=== PATIENT | male | born 1960 | race Caucasian/White ===

== ENCOUNTER → 2017-05-14 | Outpatient (CLI) | payer OTHER ==
[~2017-05-14] MED LIST: AMLO-110 PO; BUPR-79 PO; FENT25DI2 TOP; FLUO20CA35 PO; GLC/500 PO; HYDR-4079 PO; IPRA1AER2 INH; IPRASOL34 INH; LOSA100T65 PO; MONT1TAB3 PO; MULT-506 PO; PANT40TA PO; PREG100C PO; RANI300T PO; SIMV20TA2 PO
--- NOTE | 2017-05-14 15:39 | DIAGNOSTIC IMAGING REPORT ---
LUMBAR SPINE 5 VIEWS CLINICAL HISTORY: Chronic low back pain. FINDINGS: 5 views of the lumbar spine are compared to study dated 04/24/2008. The skeletal structures are osteopenic. There is no radiographic evidence of fracture or malalignment. Vertebral body height is maintained throughout the lumbar spine. There is straightening of the lumbar lordosis. Minimal retrolisthesis is seen at L1-L2. Alignment is otherwise preserved. There are postoperative changes from laminectomy and spinal fusion seen from L2 to L5. Interpedicular screws are present at all levels. The orthopedic hardware appears intact. Interpositioned bone graft material is noted. There has been discectomy at L3-L4, L4-L5, and L5-S1. Moderate disc space narrowing is seen at L1-L2. Mild narrowing is seen at L2-L3. The transverse processes are intact as visualized. Anterior osteophytes are seen throughout. Sclerotic change is noted in the sacroiliac joints. The imaged bony pelvis appears intact. Cholecystectomy clips are identified. There is no bowel obstruction. Moderate colonic fecal retention is observed. IMPRESSION: 1. No acute bony abnormality is seen involving the lumbar spine. 2. Osteopenia with spondylotic and postoperative changes as above. 3. Moderate constipation. Dictated: 05/14/2017 2:40 PM Transcribed: 05/14/2017 3:39 PM [email or web address] Electronically signed by: Alex San M.D. 05/14/2017 3:41 PM Dictated Date/Time: 05/14/2017 2:40 PM
== END | disposition home or self-care (01) ==
LOC: C.LAB1850 14:24
PROVIDERS: ATTEND Family Medicine
DX: M54.5 Low back pain (principal); M85.88 Other specified disorders of bone density and structure, other site; Z98.1 Arthrodesis status; K59.00 Constipation, unspecified; Z88.8 Allergy status to other drugs, medicaments and biological substances

== ENCOUNTER → 2017-10-26 | Outpatient (CLI) | payer OTHER ==
[~2017-10-26] MED LIST changes: -AMLO-110 PO; +AMLO5TAB3 PO
--- NOTE | 2017-10-26 11:05 | DIAGNOSTIC IMAGING REPORT ---
R HAND MIN 3 VIEWS ROUTINE, L HAND MIN 3 VIEWS ROUTINE HISTORY: 57 years-old Male PAIN IN BOTH HANDS M79.641 M79.642 acute bilateral hand pain without reported trauma COMPARISON: None available TECHNIQUE: 3 views of the bilateral hands FINDINGS: RIGHT: Mild cortical thickening about the lateral cortex mid fifth metacarpal may reflect remote healed fracture. Mild degenerative changes about the first carpal metacarpal joint. No acute fracture, dislocation, significant degenerative changes or opaque foreign body. LEFT: Mild degenerative changes about the first carpal metacarpal joint. No acute fracture, dislocation or opaque foreign body. IMPRESSION: No acute fracture. The above report was generated using voice recognition software. It may contain grammatical, syntax or spelling errors. Electronically signed by: Clive Caceres M.D. 10/26/2017 11:03 AM Dictated Date/Time: 10/26/2017 11:01 AM
== END | disposition home or self-care (01) ==
LOC: C.RAD1850 10:47
PROVIDERS: ATTEND Internal Medicine
DX: M15.0 Primary generalized (osteo)arthritis (principal); M79.641 Pain in right hand; M79.642 Pain in left hand

== ENCOUNTER 2018-10-30 06:06 | Observation (INO) ==
--- NOTE | 2018-10-14 09:17 | PAT Medication Instructions ---
Medication Instructions Date of Service October 14, 2018 Home Medications DUONEB 1 inh INHALATION QID PRN amlodipine 5 mg PO HS ascorbic acid (vitamin C) 2,000 mg PO QAM bupropion HCl Wellbutrin SR 150 mg PO QAM cholecalciferol (vitamin D3) 400 unit PO QAM fentanyl 1 patch TRANSDERMAL Q72H furosemide 80mg PO prn edema fluoxetine 40 mg PO QAM hydrocodone-acetaminophen 1 tab PO Q6H PRN ipratropium-albuterol [Combivent Respimat] 1 puff INHALATION QID PRN losartan 100 mg PO HS metformin 500 mg PO BIDM montelukast [Singulair] 10 mg PO QAM multivitamin 1 tab PO QAM naproxen sodium [Aleve] 440 mg PO BID PRN pantoprazole 40 mg PO QAM pregabalin 100 mg PO BID ranitidine HCl 300 mg PO BID simvastatin 20 mg PO PM zolpidem 10mg PO prn insomnia Continue as directed fentanyl 1 patch TRANSDERMAL Q72H *do not place near surgical site ASK your surgeon for instructions naproxen sodium [Aleve] 440 mg PO BID PRN DO NOT take the morning of surgery ascorbic acid (vitamin C) 2,000 mg PO QAM cholecalciferol (vitamin D3) 400 unit PO QAM furosemide 80mg PO prn edema metformin 500 mg PO BIDM montelukast [Singulair] 10 mg PO QAM multivitamin 1 tab PO QAM Take morning of surgery With a small sip of water, OTHERWISE NOTHING TO EAT OR DRINK AFTER MIDNIGHT: DUONEB 1 inh INHALATION QID PRN (if needed) bupropion HCl Wellbutrin SR 150 mg PO QAM fluoxetine 40 mg PO QAM hydrocodone-acetaminophen 1 tab PO Q6H PRN (if needed, may be taken up to four hours before surgery) ipratropium-albuterol [Combivent Respimat] 1 puff INHALATION QID PRN (if needed) pantoprazole 40 mg PO QAM pregabalin 100 mg PO BID ranitidine HCl 300 mg PO BID Take evening before surgery DUONEB 1 inh INHALATION QID PRN (if needed) amlodipine 5 mg PO HS furosemide 80mg PO prn edema hydrocodone-acetaminophen 1 tab PO Q6H PRN (if needed) ipratropium-albuterol [Combivent Respimat] 1 puff INHALATION QID PRN (if needed) losartan 100 mg PO HS metformin 500 mg PO BIDM pregabalin 100 mg PO BID ranitidine HCl 300 mg PO BID simvastatin 20 mg PO PM zolpidem 10mg PO prn HS insomnia (if needed) Other Notes If you have any questions please call us at [phone] or [phone] or [phone] or [phone]
--- NOTE | 2018-10-14 09:33 | Anesthesiology Consultation ---
Date of Service October 14, 2018 Assessment & Plan (1) Encounter for pre-operative examination: -- Glidescope used for 2013 ACDF for HNP but may be because of surgery/diagnosis rather than difficult intubation. -- MAC 3, ETT 7.5, grade view I, no issues noted for 2013 lumbar decompression/fusion. *possible difficult intubation, pt with very decreased cervical extension. CHECK BSG AM DOS Chart Review Chart Review: Acceptable Risk for Surgery and Patient seen in Pre Admission Testing Teaching & Discussion Instructed NPO after midnight before surgery, except medications with 15 cc of water. Medication instructions provided according to the PAT guidelines. History Surgery Operation Date: 10/30/18 07:45 Proposed Procedures p C4 Anterior Cervical Corpectomy - Mikel Gregory DO Height/Weight Height: 6 ft 2 in Weight: 109.5 kg Allergies Allergy/AdvReac Type Severity Reaction Status Date / Time Hydantoins Allergy Unknown RASH Verified 10/10/18 15:49 phenytoin Allergy Unknown RASH Verified 10/10/18 15:49 Medications Home Medications Medication Instructions Recorded Confirmed Last Taken DUONEB 1 inh INHALATION QID PRN #0 12/11/13 10/10/18 Unknown amlodipine 5 mg PO HS 10/10/18 10/10/18 Unknown ascorbic acid (vitamin C) [Vitamin 2,000 mg PO QAM 10/10/18 10/10/18 Unknown C] bupropion HCl [Wellbutrin SR] 150 mg PO QAM 10/10/18 10/10/18 Unknown cholecalciferol (vitamin D3) 400 unit PO QAM 10/10/18 10/10/18 Unknown [Vitamin D3] fentanyl 1 patch TRANSDERMAL Q72H 10/10/18 10/10/18 Unknown fluoxetine 40 mg PO QAM 10/10/18 10/10/18 Unknown hydrocodone-acetaminophen 1 tab PO Q6H PRN 10/10/18 10/10/18 Unknown ipratropium-albuterol [Combivent 1 puff INHALATION QID PRN 10/10/18 10/10/18 Unknown Respimat] losartan 100 mg PO HS 10/10/18 10/10/18 Unknown metformin 500 mg PO BIDM 10/10/18 10/10/18 Unknown montelukast [Singulair] 10 mg PO QAM 10/10/18 10/10/18 Unknown multivitamin 1 tab PO QAM 10/10/18 10/10/18 Unknown naproxen sodium [Aleve] 440 mg PO BID PRN 10/10/18 10/10/18 Unknown pantoprazole 40 mg PO QAM 10/10/18 10/10/18 Unknown pregabalin 100 mg PO BID 10/10/18 10/10/18 Unknown ranitidine HCl 300 mg PO BID 10/10/18 10/10/18 Unknown simvastatin 20 mg PO PM 10/10/18 10/10/18 Unknown furosemide 80 mg PO PRN 10/14/18 Unknown zolpidem 10 mg PO HS PRN 10/14/18 10/14/18 Unknown Past Medical History Medical History Anxiety BARDALES (dyspnea on exertion) Had stress testing via primary care 03/2018, WNL. Depression Diabetes mellitus, type 2 GERD (gastroesophageal reflux disease) History of difficult intubation POSSIBLY--2013 ACDF for HNP, Glidescope used, but may be because of surge ry/diagnosis rather than difficult intubation. MAC 3 ETT 7.5, grade view I for 2013 lumbar decompression/fusion. History of seizure ADOLESCENT - was weaned off of antiseizure meds around age 19, no issues since. Hx of concussion MAY 2018 - CAUSED NECK ISSUES Hx of sleep apnea HAD WEIGHT LOSS AND UPPV SURGERY - NO LONGER AN ISSUE Hyperlipidemia Hypertension Osteoarthritis Post traumatic stress disorder Seasonal asthma Uses inhalers mostly in springtime. Spinal stenosis in cervical region Spinal stenosis of lumbar region Exercise / Class Metabolic Activity III < 4 Walking/Shop/Light housework (Some BARDALES with stairs; denies any chest pain. No SOB with ambulation.) Past Family History Family History Father Family history of diabetes mellitus Past Surgical History Surgical History History of carpal tunnel release of both wrists History of hydrocelectomy History of knee replacement procedure of left knee History of knee replacement procedure of right knee History of lumbar surgery X4 History of meniscectomy of left knee History of meniscectomy of right knee History of repair of anterior cruciate ligament of left knee History of repair of anterior cruciate ligament of right knee History of uvulopalatopharyngoplasty Hx of cervical spine surgery X2 Hx of cholecystectomy Hx of decompression of ulnar nerve RIGHT Hx of lymph node excision RIGHT NECK Hx of nasal septoplasty Hx of tonsillectomy Past Anesthesia History No Hx of Anesthesia Complications and No Family Hx of Anesthesia Complications History of PONV No Hx of PONV and No Hx of Motion Sickness Social History Smoking Status: Former smoker Do You Dip or Chew Tobacco: No Smoking End Date: 27 YR AGO Hx Alcohol Use: Yes Alcohol type: hard liquor alcohol intake frequency: a few times a week Hx Substance Use: No Review of Systems Pt denies any recent chest pain, palpitations, cough, fever or URI. +some breathing discomfort felt 2/2 neck brace Physical Exam Vital Signs BP: 132/84 P: 81bpm SPO2: 96% RA T: 97.8 F R: 16 ENMT Mouth: + dental restorations (several caps); no chipped teeth and no loose teeth Thyromental Distance: > or= 3.5 Finger Breadths (3.5) Mallampati Class: I (uvula surgically absent) Neck + limited neck extension and + facial hair (short lai) wearing rigid cervical collar. Respiratory normal respiratory effort Auscultation: lungs clear to auscultation bilaterally Cardiovascular Rate/Rhythm: regular rate and regular rhythm Heart Sounds: no murmur Extremities: no edema Testing Laboratory Results 10/14/18 09:45 10/14/18 09:45 PT 10.7 Seconds (9.0-12.0) 10/14/18 09:45 INR 1.0 (0.9-1.1) 10/14/18 09:45 APTT 25.8 Seconds (21.0-31.0) 10/14/18 09:45 Urine Color Dark Yellow 10/14/18 09:45 Urine Appearance Clear (Clear) 10/14/18 09:45 Urine pH 5.5 (4.5-7.5) 10/14/18 09:45 Ur Specific [place] 1.020 (1.000-1.030) 10/14/18 09:45 Urine Protein Negative (Negative) 10/14/18 09:45 Urine Glucose (UA) Negative (Negative) 10/14/18 09:45 Urine Ketones Negative (Negative) 10/14/18 09:45 Urine Nitrite Negative (Negative) 10/14/18 09:45 Ur Leukocyte Esterase Negative (Negative) 10/14/18 09:45 Blood Type A Positive 10/14/18 09:45 Antibody Screen NEGATIVE 10/14/18 09:45 Electrocardiogram Date: 10/14/18 Findings: + NSR @ (66) Chest X-Ray Date: 10/14/18 Findings: + NAD Stress Test Date: 03/05/18 Resting EF: 60% Negative stress echocardiogram and EKG for ischemia at 85% MPHR. Above average exercise tolerance for age and gender, 131% of predicted, achieving 12.6 METs. Rest echo: Normal LV size and systolic function with no regional wall motion abnormality's at rest. No LVH.
--- NOTE | 2018-10-14 10:07 | XRay Report ---
XR chest Pre-admission PA/Lat CLINICAL HISTORY: Preoperative chest COMPARISON STUDY: 01/28/2015 FINDINGS: The cardiac and mediastinal contours are normal. There is no evidence of focal pulmonary co nsolidation. There is no evidence of failure. No pleural effusions are visualized.[ IMPRESSION: No active disease in the chest. Electronically signed by: Abdoulaye Bosch M.D. 10/14/2018 10:06 AM
[2018-10-14 11:05] LABS: Basophils # (auto) 0.03 K/uL (0-0.2); Basophils % (auto) 0.6 %; Eosinophils # (auto) 0.35 K/uL (0-0.5); Eosinophils % (auto) 7.4 %; Hemoglobin 13.8 g/dL (14.0-18.0); Immature Granulocytes # (auto) 0.01 K/uL (0.00-0.02); Immature Granulocytes % (auto) 0.2 %; Lymphocytes # (auto) 1.11 K/uL (1.2-3.4); Lymphocytes % (auto) 23.5 %; Mean Corpuscular Hgb Conc 33.7 g/dL (32-36); Mean Corpuscular Volume 88.6 fL (80-100); Mean Platelet Volume 11.2 fL (7.4-10.4); Monocytes # (auto) 0.74 K/uL (0.11-0.59); Monocytes % (auto) 15.7 %; Neutrophils # (auto) 2.48 K/uL (1.4-6.5); Neutrophils % (auto) 52.6 %; Platelet Count 239 K/uL (130-400); RDW Coefficient of Variation 13.7 % (11.5-14.5); RDW Standard Deviation 44.7 fL (36.4-46.3); Red Blood Count 4.63 M/uL (4.7-6.1); White Blood Count 4.72 K/uL (4.8-10.8)
[2018-10-14 11:07] LABS: Appearance Urine Clear (Clear); Bilirubin Urine Negative (Negative); Blood Urine Negative (Negative); Color Urine Dark Yellow; Glucose Urine UA Negative (Negative); Ketones Urine Negative (Negative); Leukocyte Esterase Urine Negative (Negative); Nitrite Urine Negative (Negative); Protein Urine Negative (Negative); Urobilinogen Urine Negative (Negative); pH Urine 5.5 (4.5-7.5)
[2018-10-14 11:17] LABS: Partial Thromboplastin Time 25.8 Seconds (21.0-31.0); Prothrombin Time 10.7 Seconds (9.0-12.0)
[2018-10-14 12:07] LABS: BUN Creatinine Ratio 15.9 (10-20); Creatinine Clr Calc Pharmacy 116.4 ml/min; Est GFR (African American) 106.6; Potassium 4.5 mmol/L (3.5-5.1)
[~2018-10-30 06:06] MED LIST changes: -AMLO5TAB3 PO; -BUPR-79 PO; +CEFAZOLIN 2000MG 2,000 MG/15 ML SYR IV SCH; -FENT25DI2 TOP; -FLUO20CA35 PO; -GLC/500 PO; -HYDR-4079 PO; -IPRA1AER2 INH; -IPRASOL34 INH; -LOSA100T65 PO; +LR 15ML/HR IV SCH; -MONT1TAB3 PO; -MULT-506 PO; -PANT40TA PO; -PREG100C PO; -RANI300T PO; -SIMV20TA2 PO
[2018-10-30] MEDS ORDERED: ATROPINE SULFATE 0.1 MG/ML 10ML SYR IV PRN (06:34)
[2018-10-30] MEDS ORDERED: ePHEDrine sulfate 50 MG/ML AMP IV PRN (06:34)
[2018-10-30] MEDS ORDERED: ONDANSETRON INJ 2 MG/ML 2 ML VIAL IV PRN ×2 (06:34→11:19)
[2018-10-30] MEDS ORDERED: MIDAZOLAM HCL 1 MG/ML 2ML VIAL ONE (06:38)
[2018-10-30] MEDS ORDERED: fentaNYL citrate 100 MCG/2 ML VIAL ONE ×4 (06:38→09:12)
[2018-10-30] MEDS ORDERED: HYDROmorphone INJ 2 MG/ML SYR/VIAL ONE (06:39)
[2018-10-30] MEDS ORDERED: DEXAMETHASONE SOD INJ 4 MG/ML VIAL ONE (06:42)
[2018-10-30] MEDS ORDERED: ONDANSETRON INJ 2 MG/ML 2 ML VIAL ONE (06:42)
[2018-10-30] MEDS ORDERED: GLYCOPYRROLATE 0.2 MG/ML VIAL ONE (06:42)
[2018-10-30] MEDS ORDERED: PROPOFOL IV EMULSION 10 MG/ML 20 ML VIAL IV ONE (06:42)
[2018-10-30] MEDS ORDERED: NEOSTIGMINE METHYLSULFATE 1 MG/ML 10ML VIAL ONE (06:42)
[2018-10-30] MEDS ORDERED: ROCURONIUM BROMIDE 10 MG/ML 5 ML VIAL ONE (06:42)
[2018-10-30] MEDS ORDERED: LIDOCAINE HCL 2% 2 ML VIAL/AMP(20MG/ML) INFIL ONE (06:42)
[2018-10-30] MEDS ORDERED: SUCCINYLCHOLINE CHLORIDE 20 MG/ML 10 ML VIAL ONE (06:42)
[2018-10-30] MEDS ORDERED: PROPOFOL IV EMULSION 10 MG/ML 100 ML VIAL IV ONE (07:03)
[2018-10-30] MEDS ORDERED: BACITRACIN INJ 50,000 UNIT VIAL ONE (07:13)
--- NOTE | 2018-10-30 07:24 | History & Physical Bridge Note ---
Date of Service October 30, 2018 History & Physical Bridge Note I have examined the patient, reviewed the History & Physical and in the interval since the performance of the History & Physical I have noted the following changes of clinical significance: no changes noted
--- NOTE | 2018-10-30 07:27 | History & Physical Report ---
Date of Service October 30, 2018 Assessment & Plan (1) Cervical stenosis of spinal canal: Anterior cervical corpectomy C4 Present on Admission?: Yes History of Present Illness Chief Complaint: Neck and arm pain Primary Care Provider: Ralph Dee MD This is a 58-year-old female well-known to me. He presents with neck and arm symptoms and neurologic decline. Subsequently we were moving forward with surgery Allergies Allergy/AdvReac Type Severity Reaction Status Date / Time Hydantoins Allergy Unknown RASH Verified 10/30/18 06:36 phenytoin Allergy Unknown RASH Verified 10/30/18 06:36 Home Medications Home Medications Medication Instructions Recorded Confirmed Type DUONEB 1 inh INHALATION QID PRN #0 12/11/13 10/30/18 History amlodipine 5 mg PO HS 10/10/18 10/30/18 History ascorbic acid (vitamin C) [Vitamin 2,000 mg PO QAM 10/10/18 10/30/18 History C] bupropion HCl [Wellbutrin SR] 150 mg PO QAM 10/10/18 10/30/18 History cholecalciferol (vitamin D3) 400 unit PO QAM 10/10/18 10/30/18 History [Vitamin D3] fentanyl 1 patch TRANSDERMAL Q72H 10/10/18 10/30/18 History fluoxetine 40 mg PO QAM 10/10/18 10/30/18 History hydrocodone-acetaminophen 1 tab PO Q6H PRN 10/10/18 10/30/18 History ipratropium-albuterol [Combivent 1 puff INHALATION QID PRN 10/10/18 10/30/18 History Respimat] losartan 100 mg PO HS 10/10/18 10/30/18 History metformin 500 mg PO BID 10/10/18 10/30/18 History montelukast [Singulair] 10 mg PO QAM 10/10/18 10/30/18 History multivitamin 1 tab PO QAM 10/10/18 10/30/18 History naproxen sodium [Aleve] 440 mg PO BID PRN 10/10/18 10/30/18 History pantoprazole 40 mg PO QAM 10/10/18 10/30/18 History pregabalin 100 mg PO BID 10/10/18 10/30/18 History ranitidine HCl 300 mg PO BID 10/10/18 10/30/18 History simvastatin 20 mg PO PM 10/10/18 10/30/18 History furosemide 80 mg PO DAILY PRN 10/14/18 10/30/18 History zolpidem 10 mg PO HS PRN 10/14/18 10/30/18 History Past Med/Surg History Medical History Anxiety BARDALES (dyspnea on exertion) Had stress testing via primary care 03/2018, WNL. Depression Diabetes mellitus, type 2 GERD (gastroesophageal reflux disease) History of difficult intubation POSSIBLY--2013 ACDF for HNP, Glidescope used, but may be because of surgery/diagnosis rather than difficult intubation. MAC 3 ETT 7.5, grade view I for 2013 lumbar decompression/fusion. History of seizure ADOLESCENT - was weaned off of antiseizure meds around age 19, no issues s [place]. Hx of concussion MAY 2018 - CAUSED NECK ISSUES Hx of sleep apnea HAD WEIGHT LOSS AND UPPV SURGERY - NO LONGER AN ISSUE Hyperlipidemia Hypertension Osteoarthritis Post traumatic stress disorder Seasonal asthma Uses inhalers mostly in springtime. Spinal stenosis in cervical region Spinal stenosis of lumbar region Surgical History History of carpal tunnel release of both wrists History of hydrocelectomy History of knee replacement procedure of left knee History of knee replacement procedure of right knee History of lumbar surgery X4 History of meniscectomy of left knee History of meniscectomy of right knee History of repair of anterior cruciate ligament of left knee History of repair of anterior cruciate ligament of right knee History of uvulopalatopharyngoplasty Hx of cervical spine surgery X2 Hx of cholecystectomy Hx of decompression of ulnar nerve RIGHT Hx of lymph node excision RIGHT NECK Hx of nasal septoplasty Hx of tonsillectomy Family History Father Family history of diabetes mellitus Social History Preferred Language: Citizen Of [place] Communication Ability: Effective Beliefs That Will Affect Care: None Current Living Situation: Spouse Feels Safe at Home: Yes Smoking Status: Former smoker Do You Dip or Chew Tobacco: No ; Smoking End Date: 27 YR AGO ; Second Hand Exposure: No ; Hx Alcohol Use: Yes Alcohol type: hard liquor Hx Substance Use: No Physical Exam Physical Exam: Patient is alert and oriented neurologically intact Results & Data Vital Signs (Past 12 Hours) Vital Signs Temp Pulse Resp BP Pulse Ox 10/30/18 06:30 36.6 C 70 18 136/88 93
[2018-10-30] MEDS ORDERED: ePHEDrine sulfate 50 MG/ML SYR ONE (09:11)
[2018-10-30] MEDS ORDERED: FLOSEAL HEMOSTATIC MATRIX 10ML TOP ONE (09:21)
--- NOTE | 2018-10-30 09:27 | Operative Report ---
Post Operative Report Pre & Post Diagnosis Operation Date: 10/30/18 07:45 Pre-Op Diagnosis: Cervical spinal stenosis with myeloradiculopathy Post-Op Diagnosis: Same Procedure Operation Date: 10/30/18 07:45 Actual Procedures #1 anterior cervical corpectomy with bilateral foraminotomies C4. #2 anterior cervical arthrodesis C3-C5. #3 placement of spiral titanium cage 25 mm in height from C3-C5. #4 placement of locally harvested morselized autograft and interbody cage. #5 application of kirby plate and screws from C3-C5. Surgeon Mikel Gregory, Feed Research Aide Omayra Wynne Estimated Blood Loss 75 Findings Consistent with Post-Op Diagnosis Specimens None Indications This is a 58-year-old male who presents with myeloradiculopathy. After noting progressive changes would like to undergo the above-mentioned procedure. Description of Procedure Patient was met with identified and informed consent obtained. He was then taken to the operative suite underwent intubation placed in supine position Kadeem table with head Rosario head of maintenance. All bony prominences well-padded eyes inspected to ensure no external pressure placed upon the peer at this point the anterior cervical spine was prepped and draped in normal sterile fashion with the assistance of fluoroscopy identified the C4 vertebral body and a transverse incision was placed on the right anterior aspect of the cervical spine overlying this region. Sharp dissection with the assistance of bipolar electrocautery was performed down to and exposing the anterior cervical spine from C3-C5. Self-retaining retractors placed. Then performed a complete discectomy of C3-4 out to the uncovertebral joints bilaterally followed by complete discectomy of C4-5. [place] distracting pins were then placed in C3 and C5 distract across the C4 vertebral body. A complete corpectomy was then performed including removal of all posterior annular fibers longitudinal ligament and the disc fragments. Bilateral foraminotomies were also performed at this time. Endplates were then burred to subcortical bleeding bone and a 25 mm titanium cage filled with locally harvested morselized autograft tapped in position. Distraction apparatus was removed and a kirby plate and screws applied with the assistance of fluoroscopy. The incision was then copiously irrigated explored to ensure no damage to surrounding structures remaining bleeding. 10 round AUGUSTUS drain inserted. The incision was then closed with 2 Vicryl in the fashion of 4 Monocryl for final skin closure. Steri-Strip sterile dressings placed. Patient will continue PACU stable condition. Please note Omayra Wynne present at the entire procedure involved in patient positioning complex portions of the surgery and final skin closure. Lastly spinal cord monitoring was utilized that procedure no changes noted. I attest to the content of the Intraoperative Record and any orders documented therein. Any exceptions are noted below.
--- NOTE | 2018-10-30 09:41 | Fluoroscopy Report ---
INTRAOPERATIVE RADIOGRAPHS CLINICAL HISTORY: Anterior spinal fusion. Fluoroscopy time: 9 seconds. FINDINGS: 2 spot fluoroscopic views of the cervical spine are correlated with radiographs dated 2018. There has been corpectomy of C4, with anterior fusion seen from C3-C5. The orthopedic hardware appears intact. A screw fragment is again seen within the body of C5. Changes of anterior fusion at C 6-C7 are similar to previous. An endotracheal tube is in place. IMPRESSION: Intraoperative images from cervical spinal fusion surgery as above. Electronically signed by: Alex San M.D. 10/30/2018 9:39 AM
[2018-10-30] MEDS ORDERED: ESMOLOL HCL INJ 10 MG/ML 10ML VIAL IV ONE (09:47)
[2018-10-30] MEDS: fentaNYL citrate 100 MCG/2 ML VIAL IV PRN ×2 (10:12→10:25)
--- NOTE | 2018-10-30 10:40 | Anesthesiology Progress Note ---
Date of Service October 30, 2018 Anesthesia Post Procedure Vital Signs Vital Signs: Temp Pulse Pulse Resp BP BP Pulse Ox 10/30/18 10:35 74 16 121/78 94 10/30/18 10:25 97.5 F L 77 16 119/74 95 10/30/18 10:15 75 16 119/70 96 10/30/18 10:05 75 14 118/66 95 10/30/18 09:55 75 14 112/68 96 10/30/18 09:45 78 16 119/73 92 10/30/18 09:36 97.7 F 84 16 125/78 100 10/30/18 06:30 97.9 F 70 18 136/88 93 Pain Intensity Posterior Medial Neck: Pain Intensity: 5 Upper Posterior Neck: Pain Intensity: 6 Transfer of Care Handoff Completed per policy Notes Mental Status: alert / awake / arousable and participated in evaluation Patient Amnestic to Procedure: Yes Nausea / Vomiting: adequately controlled Pain: adequately controlled Airway Patency, RR, SpO2: stable & adequate BP & HR: stable & adequate Hydration State: stable & adequate Anesthetic Complications: no major complications apparent and Pt Satisfied with anesthetic care
[2018-10-30] MEDS ORDERED: FUROSEMIDE 80 MG TAB PO PRN (11:19)
[2018-10-30] MEDS ORDERED: NAPROXEN 250 MG TAB PO PRN (11:19)
[2018-10-30] MEDS ORDERED: ACETAMINOPHEN 1,000 MG/100 ML VIAL IV PRN (11:19)
[2018-10-30] MEDS ORDERED: DO NOT ADMINISTER FLU VACCINE PRN (11:19)
[2018-10-30] MEDS ORDERED: LORazepam 0.5 MG/1 ML VIAL IV PRN (11:19)
[2018-10-30] MEDS ORDERED: DiphenhydrAMINE HCL 50 MG/ML VIAL IV PRN (11:19)
[2018-10-30] MEDS ORDERED: DO NOT ADMINISTER PNEUMOCOCCAL VACCINE PRN (11:19)
[2018-10-30] MEDS ORDERED: DEXAMETHASONE SOD PHOSPHATE 8 MG in SYRINGE 0 ML IV PRN (11:19)
[2018-10-30] MEDS ORDERED: ZOLPIDEM TARTRATE 10 MG TAB PO PRN (11:19)
[2018-10-30] MEDS ORDERED: HYDROmorphone INJ 0.5 MG/0.5 ML SYR IV PRN (11:19)
[2018-10-30] MEDS ORDERED: RACEPINEPHRINE 2.25% NEBU SOLN 0.5 ML VIAL INH PRN (11:19)
[2018-10-30] MEDS ORDERED: LORazepam 0.5 MG TAB PO PRN (11:19)
[2018-10-30] MEDS ORDERED: IPRATROPIUM BROMIDE/ALBUTEROL respimat INH INH PRN (11:19)
[2018-10-30] MEDS ORDERED: MAGNESIUM HYDROXIDE SUSP 30 ML UDC PO PRN (11:19)
[2018-10-30] MEDS ORDERED: NALOXONE HCL 0.4 MG/1 ML VIAL/CARP IV PRN (11:19)
[2018-10-30] MEDS ORDERED: PHARMACY GLYCEMIC MGMT CONSULT PRN (11:45)
[2018-10-30] MEDS ORDERED: ALBUT/IPRATROP 3MG/0.5MG NEB 3 ML VIAL INH PRN (13:00)
[2018-10-30] MEDS: INSULIN ASPART 100 UNITS/ML 3 ML PEN SC SCH ×3 (13:00→21:13)
[2018-10-30] MEDS: HYDROCODONE/ACETAMOPHEN 5/325MG TAB PO PRN ×2 (13:04→17:55)
[2018-10-30] MEDS ORDERED: LANTUS PER UNIT CHARGE SQ ONE (13:30)
[2018-10-30] MEDS ORDERED: SCOPOLAMINE 1.5 MG TDSY TD SCH (13:30)
--- NOTE | 2018-10-30 13:30 | Pharmacy Report ---
Glycemic Control Consultation - Date of Service October 30, 2018 - Scope Scope: Glycemic Pharmacist consulted by Dr Gregory on 10/30/18 for glycemic control and to write orders per [facility] inpatient glycemic control protocol - Objective Weight: 108.8 kg Accuchecks BSG (last 24hrs): 10/30/18 10/30/18 06:29 09:40 POC Glucose 114 H 128 H - Recent Pertinent Medications Outpatient Anti-diabetic Regimen: * metformin 500 mg po BID * A1c = ~4.5-5 % August 2018 --> per patient Risk Factors for Insulin Resistance: * Steroids: dexamethasone 12 mg IV x 1 intraop * Recent Surgery: POD 0 for back surgery * Diet: T2DM - Assessment & Plan Assessment & Plan: ASSESSMENT: * Mr Fajardo is a 58 y/o M with a PMH of well controlled T2DM on oral agents (per his report, HbA1C ordered for tomorrow). Patient's fasting blood sugar today was 114 mg/dL. Patient okay with receiving insulin while inhouse. Will resume metformin KAT. * For Lantus, the patient received dexamethasone 12 mg IV x 1. While his blood sugar is very well controlled at home, it is reasonable to expect blood sugars to increase quickly with this dose of steroids. Will utilize a half weight- based stress of 3 --- typically use half of weight-based stress of 2 for dexamethasone 8 mg. * For Novolog, will use in-between weight-based stress of 2 and 3 ... patient's BMI is overweight so therefore it is reasonable to look at adjusted body weight. This is just slightly tighter than adjusted body weight stress of 3. One check at 0200. * ADA & AACE recommend a goal blood sugar range 140-180 mg/dl for the majority of critically ill & non-critically ill patients. However, more stringent targets may be selected in individual cases. Will utilize more stringent goal of 110-140mg/dl based on patient age & comorbidities. Additionally, tighter glycemic control is warranted to facilitate wound healing. * Pt is maintained on oral antidiabetic agents as an outpatient * Oral agents are not recommended for inpatient use d/t drug interactions, changing PO intake, and difficulty titrating for acute hyper/hypoglycemia. ADA recommends re-initiating outpatient oral agents 1-2 days prior to discharge if/when appropriate if they were held on admission. * Will hold oral agents for admission and utilize SQ basal bolus insulin regimen which is the recommended regimen for inpatient glycemic control. * Will initiate weight based insulin dosing for insulin osmel patient and titrate based on BSG trends. PLAN FOR INPATIENT GLYCEMIC CONTROL: * Holding outpatient oral diabetes medications * Basal insulin * Lantus 30 units SQ x1 * Bolus insulin * NovoLog per scale ACHS or Q6hrs while NPO * Goal Range: Low 110 mg/dL - High 140 mg/dL * Correction Factor: 18 mg/dL/unit * Nutritional / Prandial insulin per carb ratio of 1 unit per 6 grams CHO consumed * Please note that the plan above was derived based on current level of insulin resistance and hospital stress. These recommendations are appropriate for inpatient admission only. Plan of care upon discharge will need to be reassessed to avoid potential outpatient hypo/hyperglycemia. Thank you.
[2018-10-30] MEDS: SODIUM CHLORIDE 0.9% 1000ML 1,000 ML IV SCH (14:08)
[2018-10-30] MEDS: CHECK SCOPOLAMINE PATCH PLACEMENT SCH (15:10)
[2018-10-30] MEDS: CHECK FENTANYL PATCH PLACEMENT SCH (15:11)
[2018-10-30] MEDS: CEFAZOLIN 2000MG 2,000 MG/15 ML SYR IV SCH (15:13)
[2018-10-30] MEDS: DOCUSATE SODIUM 100 MG CAP PO SCH (21:11)
[2018-10-30] MEDS: PREGABALIN 100 MG CAP PO SCH (21:11)
[2018-10-30] MEDS: AMLODIPINE BESYLATE 5 MG TAB PO SCH (21:11)
[2018-10-30] MEDS: SIMVASTATIN 20 MG TAB PO SCH (21:11)
[2018-10-30] MEDS: LOSARTAN POTASSIUM 50 MG TAB PO SCH (21:11)
[2018-10-31] MEDS: SODIUM CHLORIDE 0.9% 1000ML 1,000 ML IV SCH ×2 (00:32→14:22)
[2018-10-31] MEDS: CEFAZOLIN 2000MG 2,000 MG/15 ML SYR IV SCH ×2 (00:32→09:24)
[2018-10-31] MEDS: HYDROCODONE/ACETAMOPHEN 5/325MG TAB PO PRN ×4 (00:32→20:58)
[2018-10-31] MEDS: CHECK FENTANYL PATCH PLACEMENT SCH ×4 (00:36→23:56)
[2018-10-31] MEDS: CHECK SCOPOLAMINE PATCH PLACEMENT SCH ×4 (00:36→23:56)
[2018-10-31] MEDS ORDERED: INSULIN ASPART 100 UNITS/ML 3 ML PEN SC SCH (02:00)
[2018-10-31 07:02] LABS: Estimated Average Glucose 128 mg/dl; Hemoglobin A1C 6.1 % (4.5-5.6)
--- NOTE | 2018-10-31 08:14 | Discharge Summary ---
Date of Service October 31, 2018 Admission HPI Per Admitting Provider This is a 58-year-old female well-known to me. He presents with neck and arm symptoms and neurologic decline. Subsequently we were moving forward with surgery Principal Diagnosis Cervical spinal stenosis with myeloradiculopathy Discharge Data Allergies Allergy/AdvReac Type Severity Reaction Status Date / Time Hydantoins Allergy Unknown RASH Verified 10/30/18 06:36 phenytoin Allergy Unknown RASH Verified 10/30/18 06:36 Procedures Performed Operation Date: 10/30/18 07:45 Actual Procedures p C4 Anterior Cervical Corpectomy, with Spinal Cord Monitoring(Not Applicable) - Mikel Gregory DO Ordered Studies 10/30/18 07:45 FL cervical 2-3V Routine FL fluoroscopy <1hr Routine Hospital Course (1) Cervical stenosis of spinal canal: Patient underwent anterior cervical corpectomy of C4 tolerated as well as taken to orthopedic for possibly postop day #1 he was swallowing well no hoarseness. He had improvement of symptoms of his upper extremities. AUGUSTUS drain decreasing appropriately. Subsequently discharged home. Discharge orders instructions from the chart for further review. Total Time Total Time Spent Total Time Spent (In Minutes): 20 minutes Discharge Plan Discharge Items Patient Disposition: Home - Self-Care Reason For Visit: Other Spondylosis with Myelopathy, Cervical Discharge Diagnosis: Cervical spinal stenosis with myeloradiculopathy Discharge Goals: Improve function Activity: Per 'Additional Instructions' section Non-emergency contact: Primary Care Provider Call non-emergency contact if: you have any medication questions Follow-up/Referrals: Ralph Dee MD [Primary Care Provider] - Diet: Regular Addtl Provider Instructions: ACTIVITY RECOMMENDATIONS: SELF CARE INSTRUCTIONS AFTER CERVICAL FUSIONS 1. No smoking. Smoking drastically decreases the chance of a solid fusion. 2. No bending, lifting more than 5 pounds, or twisting (roll like a log when turning in bed). 3. You may shower 3 days after surgery. Thoroughly dry wound. Do not soak in the tub. 4. Cervical collar: Must be worn at all times including sleeping. You may remove the brace only to bath, eat and if you are sitting in a recliner. 5. Please walk as much as you can for exercise. Gradually increase the distance that you walk as your endurance increases. SPECIAL CARE INSTRUCTIONS: VERY IMPORTANT TO READ AND REVIEW A. Do not take any anti-inflammatory medications (i.e. Indocin, Advil, Aspirin, Naprosyn, Aleve, Motrin, etc.) as these may inhibit the chance of a solid fusion. Tylenol is okay to take. B. Your surgical incision has been closed with a cosmetic suture under the skin that will dissolve in about 6 weeks. In 14 days, you can use a pair of clean scissors and cut the suture that is left outside of the skin at the ends of your incision. C. Complications are uncommon, but please contact us if you have any signs or symptoms of: 1. wound infection (fever higher than 102.5 degrees F, redness, separation of wound, drainage, or increasing pain from the incision) 2. blood clots in legs (pain, swelling, redness and warmth in legs) 3. urinary tract infection (fever higher than 102.5 degrees, burning upon urination or increased frequency of urination) 4. nerve problems (inability to walk on your toes or heels, numbness, loss of bowel or bladder control) 5. any other symptoms that concern you. D. Please call the office at if you have any concerns or questions about your operation or recovery. MANAGING PAIN AFTER SPINAL SURGERY 1. Narcotic medication is intended for short-term use and will be provided for surgical pain. Surgical pain usually lasts for a period of 4-6 weeks. Narcotic medication includes Percocet, Vicodin, Darvocet, Tylenol #3 or Lortab. 2. Longer-term pain is more appropriately treated with non-narcotic medication such as Tylenol ES. 3. Muscle spasm is not appropriately treated with narcotics. Muscle relaxers such as Soma, Flexeril or Skelaxin can be used along with Tylenol ES. 4. Remember that we all live with some "aches and pains". This is not unusual or uncommon after an injury or as we get older. 5. We will provide appropriate medication within the normal guidelines of their prescribed use. We will also be very cautious and aware of potential abuse and extended duration of patients' medication needs. 6. Please allow 2-3 days to process refills. Prescriptions will not be mailed but must be picked up at the office. FOLLOW UP VISIT: Keep your scheduled follow-up appointment. Any questions, please call the office at . Prescriptions: New hydrocodone-acetaminophen [[place]] 5-325 mg Tablet 1 - 2 tab PO Q4H PRN (Reason: Pain) Qty: 30 RF: 0 Continued DUONEB SOLTAB 1 inh Inhalation QID PRN (Reason: PRN) Qty: 0 RF: 0 ascorbic acid (vitamin C) [Vitamin C] 500 mg Tablet,Chewable 2,000 mg PO QAM RF: 0 cholecalciferol (vitamin D3) [Vitamin D3] 400 unit Tablet,Chewable 400 unit PO QAM RF: 0 naproxen sodium [Aleve] 220 mg Capsule 440 mg PO BID PRN (Reason: Pain) RF: 0 bupropion HCl [Wellbutrin SR] 150 mg Tablet Sustained-Release 12 Hr 150 mg PO QAM RF: 0 amlodipine 5 mg Tablet 5 mg PO HS RF: 0 fluoxetine 40 mg Capsule 40 mg PO QAM RF: 0 fentanyl 25 mcg/hr Patch 72 Hour 1 patch TRANSDERMAL Q72H RF: 0 multivitamin Tablet 1 tab PO QAM RF: 0 metformin 500 mg Tablet 500 mg PO BID RF: 0 hydrocodone-acetaminophen 10-325 mg Tablet 1 tab PO Q6H PRN (Reason: Pain) RF: 0 montelukast [Singulair] 10 mg Tablet 10 mg PO QAM RF: 0 losartan 100 mg Tablet 100 mg PO HS RF: 0 Combivent Respimat 20-100 mcg/actuation Mist 1 puff inhalation QID PRN (Reason: Wheezing) RF: 0 pantoprazole 40 mg Tablet,Delayed Release (Dr/Ec) 40 mg PO QAM RF: 0 simvastatin 20 mg Tablet 20 mg PO PM RF: 0 ranitidine HCl 300 mg Capsule 300 mg PO BID RF: 0 pregabalin 100 mg Capsule 100 mg PO BID RF: 0 furosemide 80 mg Tablet 80 mg PO DAILY PRN (Reason: Edema) RF: 0 zolpidem 10 mg Tablet 10 mg PO HS PRN (Reason: Insomnia) RF: 0 Stand-Alone Forms: [facility] Discharge Orders: Discharge Order (Routine); Ordered 10/31/18 Ordered By: Mikel Gregory Admission Data Admit Date/Time: 10/30/18 09:33 Attending Provider: Mikel Gregory Admit Provider: Mikel Gregory Primary Care Provider: Ralph Dee Service: Surgical Services
[2018-10-31] MEDS: DOCUSATE SODIUM 100 MG CAP PO SCH ×2 (09:13→21:07)
[2018-10-31] MEDS: BuPROPion SR 150 MG TABCR PO SCH (09:13)
[2018-10-31] MEDS: PANTOprazole 40 MG TAB PO SCH (09:13)
[2018-10-31] MEDS: FLUOXETINE HCL 20 MG CAP PO SCH (09:14)
[2018-10-31] MEDS: MONTELUKAST SODIUM 10 MG TABLET PO SCH (09:14)
[2018-10-31] MEDS: INSULIN ASPART 100 UNITS/ML 3 ML PEN SC SCH ×4 (09:17→21:43)
[2018-10-31] MEDS: PREGABALIN 100 MG CAP PO SCH ×2 (09:22→20:59)
--- NOTE | 2018-10-31 09:28 | Anesthesiology Progress Note ---
Date of Service October 31, 2018 Anesthesia Post Procedure Vital Signs Vital Signs: Temp Pulse Pulse Resp BP BP Pulse Ox 10/31/18 07:57 36.5 C 66 18 128/88 94 10/31/18 07:53 56 L 16 94 10/31/18 06:57 36.4 C L 55 L 18 119/76 95 10/31/18 06:15 36.8 C 64 18 122/75 96 10/31/18 04:19 36.8 C 67 18 121/76 97 10/31/18 04:07 78 18 95 10/31/18 02:19 36.7 C 69 18 119/71 96 10/31/18 00:20 36.8 C 73 18 118/68 95 10/30/18 22:55 70 16 95 10/30/18 22:36 36.7 C 79 14 120/69 94 10/30/18 19:58 36.4 C L 80 16 128/68 95 10/30/18 19:50 79 16 98 10/30/18 18:05 36.7 C 79 16 125/82 96 10/30/18 15:59 36.5 C 81 16 115/79 96 10/30/18 15:57 87 16 92 10/30/18 14:04 36.5 C 78 14 117/72 94 10/30/18 13:06 36.8 C 82 14 124/81 96 10/30/18 12:02 36.4 C L 75 16 121/75 96 10/30/18 11:56 71 14 97 10/30/18 11:26 36.4 C L 74 14 118/71 95 10/30/18 11:00 36.8 C 79 14 109/68 96 10/30/18 10:45 36.4 C L 74 14 115/71 95 10/30/18 10:35 74 16 121/78 94 10/30/18 10:25 36.4 C L 77 16 119/74 95 10/30/18 10:15 75 16 119/70 96 10/30/18 10:05 75 14 118/66 95 10/30/18 09:55 75 14 112/68 96 10/30/18 09:45 78 16 119/73 92 10/30/18 09:36 36.5 C 84 16 125/78 100 Pain Intensity Posterior Medial Neck: Pain Intensity: 5 Upper Posterior Neck: Pain Intensity: 6 Notes Mental Status: alert / awake / arousable and participated in evaluation Patient Amnestic to Procedure: Yes Nausea / Vomiting: adequately controlled Pain: adequately controlled Airway Patency, RR, SpO2: stable & adequate BP & HR: stable & adequate Hydration State: stable & adequate Anesthetic Complications: no major complications apparent and Pt Satisfied with anesthetic care
--- NOTE | 2018-10-31 12:03 | Magnetic Resonance Report ---
MR brain wo con HISTORY: 58 years-old Male Left facial droop after cerv sx acute strokelike symptoms with left-sided facial droop COMPARISON: Brain MRI 06/16/2014 TECHNIQUE: Multiplanar multisequence MRI of the brain was obtained without the use of IV contrast. FINDINGS: Electrical Calibrator localizer images demonstrate no gross extracranial abnormality. There is no restricted diffusio n to suggest acute or subacute infarction. Minimal prominence about the posterior corpus callosum is unchanged from comparison study. There is no acute intracranial hemorrhage, midline shift, abnormal e xtra axial collection, hydrocephalus or intracranial mass identified. Minimal scattered T2/FLAIR hype rintensities about the subcortical and periventricular white matter is unchanged and likely reflects chronic microvascular ischemic disease. Mastoid air cells are generally clear. Flow voids at the level the skull base appear patent. Mild muc osal thickening about the paranasal sinuses and nasal turbinates. Orbits, and skull appear unremarkab le. Study is mildly motion degraded. Ovoid 1.5 cm T1 intermediate and T2 hypointense lesion about the left parietal scalp previously measured 10 mm and is likely benign. IMPRESSION: Motion degraded exam without acute intracranial abnormality. The above report was generated using voice recognition software. It may contain grammatical, syntax o r spelling errors. Electronically signed by: Clive Caceres M.D. 10/31/2018 12:02 PM
[2018-10-31] MEDS ORDERED: GADOBUTROL 65ML VIAL IV PRN (12:48)
--- NOTE | 2018-10-31 13:14 | Magnetic Resonance Report ---
MRI OF THE CERVICAL SPINE WITH AND WITHOUT CONTRAST CLINICAL HISTORY: Postoperative left hand numbness. COMPARISON: Cervical spine CT April 24, 2018. Fluoroscopic images of the cervical spine October 30. TECHNIQUE: Utilizing a 1.5 Angie magnet and dedicated coil, multiplanar, multiecho imaging of the ce rvical spine was performed before and after intravenous administration of 10.5 cc of Gadavist. FINDINGS: Patient is status post recent C4 corpectomy and C3-C5 fusion. A previous fusion through C7 is noted. Cervical cord signal and caliber are normal. There is no intracanalicular mass or fluid collection. P revertebral edema is noted. This is expected in the early postoperative setting. There is no intracan alicular mass or fluid collection. C2-C3: The central canal and neural foramen are patent. C3-C4: Mild posterior disc osteophyte complex effaces the ventral thecal sac. There is minimal centr al canal narrowing. Moderate to severe left and moderate right neural foraminal stenosis. C4-C5: The central canal is patent. There is severe right and moderate to severe left neural foramin al stenosis. C5-C6: The central canal is patent. The neural foramen also patent. C6-C7: The central canal and right neural foramen are patent. There is mild narrowing of the left ne ural foramen. C7-T1: The central canal and right neural foramen are patent. There is moderate narrowing of the lef t neural foramen. IMPRESSION: 1. Status post recent C4 corpectomy and C3-C5 fusion with previous fusion through C7. Prevertebral ed yamile which is expected in the early postoperative setting. No intracanalicular fluid collection. Nicolle l cervical cord signal and caliber. 2. Mild posterior disc osteophyte complex at C3-C4 which effaces the ventral thecal sac. No severe ce ntral canal stenosis. 3. Moderate to severe multilevel neural foraminal stenosis, as detailed above. Electronically signed by: Joel Fisher M.D. 10/31/2018 1:13 PM
--- NOTE | 2018-10-31 13:37 | Pharmacy Report ---
Glycemic Control Progress Note - Date of Service October 31, 2018 - Scope Glycemic Pharmacist consulted for glycemic control to write orders per [facility] inpatient glycemic control protocol. - Objective Accuchecks BSG(last 24 hours):: 10/30/18 10/30/18 10/31/18 18:01 20:30 02:05 POC Glucose 167 H 91 103 H 10/31/18 10/31/18 08:03 13:04 POC Glucose 93 79 HbA1c:: Hemoglobin A1c 6.1 % (4.5-5.6) H 10/31/18 05:32 - Recent Pertinent Medications The patient is currently receiving: * Basal insulin: Lantus 30 units SQ x 1 * Correctional Insulin: Novolog Correction per scale ACHS Goal Range: Low 110 mg/dL - High 140 mg/dL Correction Factor: 18 mg/dL/unit * Prandial insulin: Per carb ratio of 1 unit per 6 grams CHO consumed - Outpatient Anti-Diabetic Meds metformin 500 mg PO BID - Assessment & Plan ASSESSMENT: * See progress note from 10/30/18 for more background info, in short: * Pt receiving SQ basal bolus insulin regimen for hyperglycemia secondary to baseline DM (outpatient regimen on hold), POD 1, and received dexamethasone 12 mg intraoperatively * Patient is currently receiving an average of 47 units of insulin per day * 30 units of basal insulin * 17 units of prandial/correctional insulin * BSGs ranging 91 - 128 mg/dl over the past 24hrs (blood sugar at dinner of 167 mg/dL was AFTER the patient ate so is not accurate and therefore not counted) * Changes needed to insulin regimen: * AM Fasting BSG = 93 mg/dl. This is in goal range for patient based on inpatient targets and co-morbidities. Will not continue basal insulin * Post-prandial BSGs trended downwards - loosen significantly and start metformin in 48 hours since received contrast. Expect some carryover from Lantus dose * Total daily dose TBD PLAN FOR INPATIENT GLYCEMIC CONTROL: * No additional Lantus * LOOSENING correction factor to 45 mg/dl/unit * LOOSENING carb ratio to 1 unit per 15 grams CHO consumed * Continuing goal range of Low 110 mg/dL - High 140 mg/dL RECOMMENDATIONS FOR DISCHARGE: * Patient okay to restart metformin 48 hours after IV contrast. HbA1C indicates excellent control * Please note that the plan above was derived based on current level of insulin resistance and hospital stress. These recommendations are appropriate for inpatient admission only. Plan of care upon discharge will need to be reassessed to avoid potential outpatient hypo/hyperglycemia. Thank you.
--- NOTE | 2018-10-31 15:54 | Hospitalist Consultation ---
Date of Consultation October 31, 2018 Assessment & Plan (1) Facial droop: Acute onset left-sided lower facial droop first noted on 10/31. Patient, staff, and family all report that this was not present the prior evening. The patient underwent a MR brain and MR cervical spine with and without contrast. The MRI brain did not show any acute stroke. The MR cervical spine showed expected postoperative changes without any spinal cord compromise. Discussed the case with both Dr. Gregory and Dr. Oliver. 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 The patient has no other signs or symptoms of an ongoing central process. Normally one could treat a Pizano's palsy with steroids; however, given his recent surgery I would avoid this to promote healing and avoid infection in the surgical site. Often these will spontaneously resolve. The left handed numbness is likely a separate process related to expected swelling at the surgical area. One can hope that this will improve as the surgical site inflammation reduces, and the patient can follow-up with Dr. Gregory as normally scheduled. I did discuss with the patient, and he will follow with Dr. Gregory's advice regarding discharge. Given medical stability, Hospital Medicine team will sign off. Please re-consult with any questions or concerns. Thank you for letting us assist in the care of this patient! History of Present Illness Attending Physician: Mikel Gregory, DO History of Present Illness 58-year-old male with a history of hypertension and neck pain who presents as an urgent medical consult for concern for stroke after an ACDF with Dr. Gregory on 10/30. Patient underwent an uneventful ACDF with corpectomy and had an uneventful night. In the morning when his arrived, she and the RN noted that he had a left-sided facial droop. The patient also mentioned some additional numbness in the left hand. Left hand numbness had been ongoing prior to surgery, and was partially the cause of surgery. The RN notified to Dr. Gregory who had concern for stroke. Medical consult was established at that time. The patient denies any other symptoms whatsoever including dysphasia, dysarthria, weakness of the upper or lower extremities, or numbness in any other place. Allergies Allergy/AdvReac Type Severity Reaction Status Date / Time Hydantoins Allergy Unknown RASH Verified 10/30/18 06:36 phenytoin Allergy Unknown RASH Verified 10/30/18 06:36 Home Medications Home Medications Medication Instructions Recorded Confirmed Type DUONEB 1 inh INHALATION QID PRN #0 12/11/13 10/30/18 History amlodipine 5 mg PO HS 10/10/18 10/30/18 History ascorbic acid (vitamin C) [Vitamin 2,000 mg PO QAM 10/10/18 10/30/18 History C] bupropion HCl [Wellbutrin SR] 150 mg PO QAM 10/10/18 10/30/18 History cholecalciferol (vitamin D3) 400 unit PO QAM 10/10/18 10/30/18 History [Vitamin D3] fentanyl 1 patch TRANSDERMAL Q72H 10/10/18 10/30/18 History fluoxetine 40 mg PO QAM 10/10/18 10/30/18 History hydrocodone-acetaminophen 1 tab PO Q6H PRN 10/10/18 10/30/18 History ipratropium-albuterol [Combivent 1 puff INHALATION QID PRN 10/10/18 10/30/18 History Respimat] losartan 100 mg PO HS 10/10/18 10/30/18 History metformin 500 mg PO BID 10/10/18 10/30/18 History montelukast [Singulair] 10 mg PO QAM 10/10/18 10/30/18 History multivitamin 1 tab PO QAM 10/10/18 10/30/18 History naproxen sodium [Aleve] 440 mg PO BID PRN 10/10/18 10/30/18 History pantoprazole 40 mg PO QAM 10/10/18 10/30/18 History pregabalin 100 mg PO BID 10/10/18 10/30/18 History ranitidine HCl 300 mg PO BID 10/10/18 10/30/18 History simvastatin 20 mg PO PM 10/10/18 10/30/18 History furosemide 80 mg PO DAILY PRN 10/14/18 10/30/18 History zolpidem 10 mg PO HS PRN 10/14/18 10/30/18 History hydrocodone-acetaminophen [[place]] 1 - 2 tab PO Q4H PRN #30 tab 10/30/18 Rx Patient History Medical History Anxiety Depression Diabetes mellitus, type 2 GERD (gastroesophageal reflux disease) History of seizure ADOLESCENT - was weaned off of antiseizure meds around age 19, no issues since. Hx of concussion MAY 2018 - CAUSED NECK ISSUES Hx of sleep apnea HAD WEIGHT LOSS AND UPPV SURGERY - NO LONGER AN ISSUE Hyperlipidemia Hypertension Osteoarthritis Post traumatic stress disorder Seasonal asthma Uses inhalers mostly in springtime. Spinal stenosis in cervical region Spinal stenosis of lumbar region BARDALES (dyspnea on exertion) Had stress testing via primary care 03/2018, WNL. Surgical History History of carpal tunnel release of both wrists History of hydrocelectomy History of knee replacement procedure of left knee History of knee replacement procedure of right knee History of lumbar surgery X4 History of meniscectomy of left knee History of meniscectomy of right knee History of repair of anterior cruciate ligament of left knee History of repair of anterior cruciate ligament of right knee History of uvulopalatopharyngoplasty Hx of cervical spine surgery X2 Hx of cholecystectomy Hx of decompression of ulnar nerve RIGHT Hx of lymph node excision RIGHT NECK Hx of nasal septoplasty Hx of tonsillectomy History of difficult intubation POSSIBLY--2013 ACDF for HNP, Glidescope used, but may be because of surgery/diagnosis rather than difficult intubation. MAC 3 ETT 7.5, grade view I for 2013 lumbar decompression/fusion. Family History Father Family history of diabetes mellitus Social History Preferred Language: Maori Communication Ability: Effective Beliefs That Will Affect Care: None Current Living Situation: Spouse Feels Safe at Home: Yes Smoking Status: Former smoker Do You Dip or Chew Tobacco: No ; Smoking End Date: 27 YR AGO ; Second Hand Exposure: No ; Hx Alcohol Use: Yes Alcohol type: hard liquor Hx Substance Use: No Review of Systems Constitutional: no fever, no chills and no sweats Eyes: no diplopia Ear, Nose, Mouth, Throat: no ear trauma, no nasal discharge and no dental pain Respiratory: no cough, no chest congestion and no dyspnea Cardiovascular: no chest pain, no dyspnea on exertion, no palpitations and no syncope Gastrointestinal: no abdominal pain, no belching, no constipation, no diarrhea/loose stools, no blood in stools and no melena Musculoskeletal: no back pain, no joint pain and no muscle weakness Integumentary: no rash, no skin ulcer and no erythema Neurologic: + numbness (Left hand); no gait abnormality, no unsteadiness, no localized weakness, no generalized weakness, no paralysis, no loss of sensation, no paresthesia, no lack of coordination, no radiating pain, no tremor(s), no abnormal movements, no restless legs, no syncope, no headache(s), no abnormal speech and no memory loss Psychiatric: no depression and no anxiety Endocrine: no fatigue, no polydipsia and no polyphagia Physical Exam Constitutional: WD/WN, vitals as above Eyes: EOM intact bilaterally; no conjunctival abnormality ENMT: external ear and nose normal, oropharynx normal Neck: trachea midline, no thyromegaly normal visual inspection Respiratory: normal respiratory effort, lungs clear to auscultation no respiratory distress Cardiovascular: RRR, no murmur, no edema Gastrointestinal (Abdomen): Inspection/Auscultation: abdomen normal to inspection; abdomen not distended Musculoskeletal: no cyanosis or clubbing, extremities motor strength 5/5 Skin: no rashes, warm and dry Neurologic: moves all extremities and awake; no focal motor deficits and not confused Speech / Cognition: normal speech and no receptive aphasia Motor/Sensory: + sensory deficit (Light touch numbness in the fingertips); no tremor, normal movement and no pronator drift Cranial Nerves: PERRL, EOM intact bilaterally and tongue midline; + abnormal facial strength (Left lower lip droop; no upper facial involvement.) Coordination: normal [id number] test and normal [id number] test Psychiatric: Orientation: alert, oriented to person and cooperative Results & Data Vital Signs (Past 12 Hours) Vital Signs Temp Pulse Resp BP Pulse Ox 10/31/18 15:42 57 L 97 10/31/18 15:05 36.7 C 52 L 14 119/79 94 10/31/18 13:36 36.4 C L 62 14 141/87 H 97 10/31/18 09:57 36.5 C 52 L 14 135/87 94 10/31/18 07:57 36.5 C 66 18 128/88 94 10/31/18 07:53 56 L 16 94 08/08/19 06:57 36.4 C L 55 L 18 119/76 95 10/31/18 06:15 36.8 C 64 18 122/75 96 10/31/18 04:19 36.8 C 67 18 121/76 97 10/31/18 04:07 78 18 95 PG Care Time/CCT Total # of Minutes Spent Total Time Spent with Patient: Total time spent is greater than 50% in coordination of care (as documented) at patient's floor/unit and/or counseling patient:
[2018-10-31] MEDS ORDERED: LANTUS PER UNIT CHARGE SQ ONE (16:00)
[2018-10-31] MEDS: DEXAMETHASONE SOD PHOSPHATE 8 MG in SYRINGE 0 ML IV SCH ×2 (17:11→23:56)
[2018-10-31] MEDS ORDERED: GLUCOSE 40% GEL 15 GM TUBE PO PRN (21:00)
[2018-10-31] MEDS ORDERED: CARBOHYDRATES FOR HYPOGLYCEMIA PO PRN (21:00)
[2018-10-31] MEDS ORDERED: GLUCOSE 10 TABS/TUBE PO PRN (21:00)
[2018-10-31] MEDS ORDERED: DEXTROSE 50% 50 ML SYRINGE IV PRN (21:00)
[2018-10-31] MEDS ORDERED: GLUCAGON FOR INJ 1 MG VIAL IM PRN (21:00)
[2018-10-31] MEDS: LOSARTAN POTASSIUM 50 MG TAB PO SCH (21:06)
[2018-10-31] MEDS: AMLODIPINE BESYLATE 5 MG TAB PO SCH (21:06)
[2018-10-31] MEDS: SIMVASTATIN 20 MG TAB PO SCH (21:07)
[2018-11-01] MEDS ORDERED: INSULIN ASPART 100 UNITS/ML 3 ML PEN SC SCH (02:00)
[2018-11-01] MEDS: DEXAMETHASONE SOD PHOSPHATE 8 MG in SYRINGE 0 ML IV SCH ×2 (05:29→12:14)
[2018-11-01] MEDS: HYDROCODONE/ACETAMOPHEN 5/325MG TAB PO PRN ×2 (05:35→12:13)
[2018-11-01] MEDS ORDERED: BISACODYL 5 MG TABEC PO PRN (07:00)
[2018-11-01] MEDS: CHECK FENTANYL PATCH PLACEMENT SCH (08:00)
[2018-11-01] MEDS ORDERED: fentaNYL 25 MCG/HR TDSY TD SCH (09:00)
[2018-11-01] MEDS: INSULIN ASPART 100 UNITS/ML 3 ML PEN SC SCH ×2 (09:14→12:20)
[2018-11-01] MEDS: MONTELUKAST SODIUM 10 MG TABLET PO SCH (09:15)
[2018-11-01] MEDS: PREGABALIN 100 MG CAP PO SCH (09:15)
[2018-11-01] MEDS: CHECK SCOPOLAMINE PATCH PLACEMENT SCH (09:15)
[2018-11-01] MEDS: DOCUSATE SODIUM 100 MG CAP PO SCH (09:15)
[2018-11-01] MEDS: PANTOprazole 40 MG TAB PO SCH (09:16)
[2018-11-01] MEDS: BuPROPion SR 150 MG TABCR PO SCH (09:16)
[2018-11-01] MEDS: FLUOXETINE HCL 20 MG CAP PO SCH (09:16)
--- NOTE | 2018-11-01 09:17 | Orthopedic Progress Note ---
Date of Service November 01, 2018 Assessment & Plan (1) Cervical stenosis of spinal canal: This time we will allow him to discharge home. Discharge orders instructions from the chart for further review. Present on Admission?: Yes Subjective Patient feels his Pizano's palsy has improved today. He is still on a soft diet. No hoarseness. Some modest arm symptoms on the left but improved from his preop erative status. Physical Exam Physical Exam: On exam is good strength testing is standing ambulating with a steady gait. Does have some droop to the left side of his mouth but no other facial muscles appear to be involved at this time. Results & Data Vital Signs (Past 12 Hours) Vital Signs Temp Pulse Resp BP BP Pulse Ox 11/01/18 07:50 36.5 C 75 16 143/87 H 92 11/01/18 07:39 88 14 92 11/01/18 03:25 67 16 94 10/31/18 23:20 76 16 95 10/31/18 23:08 36.7 C 65 14 128/78 91
[2018-11-01] MEDS ORDERED: POLYETHYLENE (MIRALAX) 17 GM PACK PO PRN (09:31)
[2018-11-01 12:56] VITALS: BP 156/92; PULSE 76; TEMP 98.4; O2SAT 96
--- NOTE | 2018-11-01 13:41 | Hospitalist Progress Note ---
Date of Service November 01, 2018 Assessment & Plan (1) Facial droop: Acute onset left-sided lower facial droop first noted on 10/31. Patient, staff, and family all report that this was not present the prior evening. The patient underwent a MR brain and MR cervical spine with and without contrast. The MRI brain did not show any acute stroke. The MR cervical spine showed expected postoperative changes without any spinal cord compromise. 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 At this point the palsy is improving. I do not have a good explanation for why this occurred. However, given it is already improving, he can follow up with his PCP in 1-2 weeks. If it has not resolved, neurology consult can be undertaken at that time. Subjective Some improvement today in the facial droop. Otherwise hand symptoms are stable to mildly improved. Review of Systems Review of Systems: All systems reviewed & are unremarkable except as noted in HPI & below Physical Exam Constitutional: WD/WN, vitals as above Eyes: EOM intact bilaterally; no conjunctival abnormality ENMT: external ear and nose normal, oropharynx normal Neck: trachea midline, no thyromegaly normal visual inspection Respiratory: normal respiratory effort, lungs clear to auscultation no respiratory distress Cardiovascular: RRR, no murmur, no edema Gastrointestinal (Abdomen): Inspection/Auscultation: abdomen normal to inspection; abdomen not distended Musculoskeletal: no cyanosis or clubbing, extremities motor strength 5/5 Skin: no rashes, warm and dry Neurologic: moves all extremities and awake; no focal motor deficits and not confused Speech / Cognition: normal speech and no receptive aphasia Motor/Sensory: + sensory deficit (Light touch numbness in the fingertips); no tremor, normal movement and no pronator drift Cranial Nerves: PERRL, EOM intact bilaterally and tongue midline; + abnormal facial strength (Left lower lip droop; no upper facial involvement.) Coordination: normal [id number]-[id number] test and normal [id number] test Psychiatric: Orientation: alert, oriented to person and cooperative Results & Data Vital Signs (Past 12 Hours) Vital Signs Temp Pulse Resp BP BP Pulse Ox 11/01/18 12:54 36.9 C 76 16 156/92 H 96 11/01/18 07:50 36.5 C 75 16 143/87 H 92 11/01/18 07:39 88 14 92 11/01/18 03:25 67 16 94 PG Care Time/CCT Total # of Minutes Spent Total Time Spent with Patient: Total time spent is greater than 50% in coordination of care (as documented) at patient's floor/unit and/or counseling patient:
== END 2018-11-01 13:17 | disposition home or self-care (01) ==
LOC: 3E 06:06 → ASU 06:06

== ENCOUNTER 2019-07-18 08:22 | Inpatient (IN) ==
--- NOTE | 2019-07-18 08:59 | Emergency Department Note ---
History of Present Illness General Chief complaint: Swelling/Edema to Extremity Stated complaint: REDNESS/SWELLING IN LEGS,PENDING COVID RESULTS Time Seen by Provider: 07/18/19 08:39 History of Present Illness Maximum Pain Intensity: 7 This is a 59-year-old male that presents to the emergency department via private vehicle with complaints "redness/swelling in legs, pending COVID-19 results". The patient notes that this Sunday evening he developed fever, headache as well as some redness to the left leg. He states that the symptoms have progressed in the leg however the headache has been slightly improving but the redness and swelling to the left leg has worsened. He states he has not heard back from the COVID-19 test results yet. His testing took place Sunday at 2:30 PM. He notes a T-max of 104 F. He notes he is feeling more energetic than he was a few days ago. He denies any cough or shortness of breath. He denies any history of PE or DVT. He rates the overall discomfort in the left leg is a 7/10. No nuchal rigidity or photophobia. Pain in the leg is worse with weightbearing. Mildly better with rest. Home Medications Home Medications Medication Instructions Recorded Confirmed Type amlodipine 5 mg PO HS 10/10/18 07/18/19 History bupropion HCl [Wellbutrin SR] 150 mg PO QAM 10/10/18 07/18/19 History cholecalciferol (vitamin D3) 0 unit PO QAM 10/10/18 07/18/19 History [Vitamin D3] fentanyl 1 patch TRANSDERMAL Q72H 10/10/18 07/18/19 History fluoxetine 40 mg PO QAM 10/10/18 07/18/19 History hydrocodone-acetaminophen 1 tab PO Q6H PRN 10/10/18 07/18/19 History losartan 100 mg PO HS 10/10/18 07/18/19 History montelukast [Singulair] 10 mg PO QAM 10/10/18 07/18/19 History multivitamin 1 tab PO QAM 10/10/18 07/18/19 History pantoprazole 40 mg PO QAM 10/10/18 07/18/19 History pregabalin [Lyrica] 100 mg PO BID 10/10/18 07/18/19 History simvastatin 20 mg PO PM 10/10/18 07/18/19 History metformin 500 mg tablet 1,000 mg PO BID tab 01/20/19 07/18/19 History cyanocobalamin (vitamin B-12) 0 mcg PO QAM 07/06/19 07/18/19 History [Vitamin B-12] lidocaine [Lidoderm] 1 patch TOP DAILY PRN 07/18/19 07/18/19 History Allergies Allergy/AdvReac Type Severity Reaction Status Date / Time Hydantoins Allergy Mild RASH Verified 07/18/19 09:45 phenytoin Allergy Mild RASH Verified 07/18/19 09:45 Past Med/Surg History Medical History Anxiety Depression Diabetes mellitus, type 2 BARDALES (dyspnea on exertion) Had stress testing via primary care 03/2018, WNL. GERD (gastroesophageal reflux disease) History of seizure ADOLESCENT - was weaned off of antiseizure meds around age 19, no issues since. Hx of concussion MAY 2018 - CAUSED NECK ISSUES Hx of sleep apnea HAD WEIGHT LOSS AND UPPV SURGERY - NO LONGER AN ISSUE Hyperlipidemia Hypertension Osteoarthritis Post traumatic stress disorder Seasonal asthma Uses inhalers mostly in springtime. Spinal stenosis in cervical region Spinal stenosis of lumbar region Surgical History History of carpal tunnel release of both wrists History of difficult intubation POSSIBLY--2013 ACDF for HNP, Glidescope used, but may be because of surgery /diagnosis rather than difficult intubation. MAC 3 ETT 7.5, grade view I for 2013 lumbar decompression/fusion. History of esophagogastroduodenoscopy (EGD) History of hydrocelectomy History of knee replacement procedure of left knee History of knee replacement procedure of right knee History of lumbar surgery X4 History of meniscectomy of left knee History of meniscectomy of right knee History of repair of anterior cruciate ligament of left knee History of repair of anterior cruciate ligament of right knee History of uvulopalatopharyngoplasty Hx of cervical spine surgery X3---last 10/2018 Hx of cholecystectomy Hx of decompression of ulnar nerve RIGHT Hx of lymph node excision RIGHT NECK Hx of nasal septoplasty Hx of tonsillectomy Family History Father Family history of diabetes mellitus Sinusitis Hypertension Heart disease Mother Sinusitis Hypertension Heart disease Stroke Other No family history of bleeding disorder Social History Preferred Language: Liberian Communication Ability: Effective Community Relations Rep Required: No Beliefs That Will Affect Care: None Current Living Situation: Spouse and Family Current Living Situation Comment: Lives with , mother in law, brother in law current occupational status: employed current occupation: [employer] Feels Safe at Home: Yes Smoking Status: Former smoker Tobacco Type: cigarettes ; Age Started Using Tobacco: 11 ; Age Quit Using Tobacco: 30 ; packs per day: 2 ; Second Hand Exposure: Yes (childhood/son smoked) ; Hx Alcohol Use: Yes Alcohol type: hard liquor Alcohol Intake Frequency Comment: 3-4 drinks/month Hx Substance Use: No Review of Systems A total of 10 systems reviewed and were otherwise negative Physical Exam Vital Signs Vital Signs - 24 hr 07/18/19 08:30 07/18/19 09:38 07/18/19 09:39 Temperature 37.6 C H Temperature Source Oral Pulse Rate 100 H 65 Pulse Rate [Right Finger] 65 Pulse Rhythm Regular Pulse Rhythm [Right Finger] Regular Pulse Strength [Right Finger] Normal Respiratory Rate 24 20 20 Respiratory Effort / Characteristics Non-Labored Spontaneous Non-Labored Spontaneous Respiratory Depth Normal Normal Respiratory Pattern Regular Regular Blood Pressure 109/87 Blood Pressure [Right Arm] 121/86 Blood Pressure Mean 94 Blood Pressure Mean [Right Arm] 97 Blood Pressure Position [Right Arm] Sitting Pulse Oximetry 95 96 96 Oxygen Delivery Method Room Air Room Air Room Air Sepsis Recent Fever Within 48 Hours No Sepsis Action Taken by Nursing No Action Required 07/18/19 11:11 Temperature 37.4 C Temperature Source Oral Pulse Rate Pulse Rate [Right Finger] 66 Pulse Rhythm Pulse Rhythm [Right Finger] Regular Pulse Strength [Right Finger] Normal Respiratory Rate 18 Respiratory Effort / Characteristics Non-Labored Spontaneous Respiratory Depth Normal Respiratory Pattern Regular Blood Pressure Blood Pressure [Right Arm] 126/80 Blood Pressure Mean Blood Pressure Mean [Right Arm] 95 Blood Pressure Position [Right Arm] Sitting Pulse Oximetry 97 Oxygen Delivery Method Room Air Sepsis Recent Fever Within 48 Hours Sepsis Action Taken by Nursing VITAL SIGNS - Vital signs and nursing notes were reviewed. Borderline febrile, otherwise stable. GENERAL -59-year-old male appearing his stated age who is in no acute distress. Communicates well with provider and answers questions appropriately. SKIN -there is a large amount of edema and erythema to the patient's left lower extremity distal to the left knee. It is circumferentially edematous. The erythema is mostly involving the anterior aspect of the left lower extremity. HEAD - NC/AT. EYES - PERRL with EOMI bilaterally. Sclera anicteric. Palpebral conjunctiva pink and moist with no injection noted. EARS - No deformities of external structures noted on gross examination bilaterally. External auditory canals without discharge or otorrhea. Tympanic membranes pearly fung without retraction or bulging. No fluid or purulent material visualized behind the TM. Handle of malleus, umbo, cone of light, pars tensa/flaccid all easily visualized. NOSE - Midline and without cyanosis. No epistaxis or purulent drainage noted. MOUTH/OROPHARYNX - Without perioral cyanosis. NECK - Neck with FROM. Supple to palpation. No lymphadenopathy noted. No nuchal rigidity. LUNGS - Chest wall symmetric without accessory muscle use, intercostals retractions, or central cyanosis. Normal vesicular breath sounds CTA B/L. No wheezes, rales, or rhonchi appreciated. CARDIAC - RRR with S1/S2. No murmur, rubs, or gallops appreciated. EXTREMITIES - No clubbing or peripheral cyanosis. No pretibial edema present. +5/5 strength noted in UE/LE bilaterally. NEUROLOGIC - Cranial nerves II through XII grossly intact. PSYCH - A&Ox3 and cooperates fully with examiner. Pt is very pleasant and interacts well with examiner. Course Administered Medications Vancomycin HCl 2,250 mg/ (Sodium Chloride) 545 mls @ 200 mls/hr IV NOW ONE Stop: 07/18/19 12:54 Last Admin: 07/18/19 11:59 Dose: 200 mls/hr Documented by: [id number] Discontinued Medications Sodium Chloride (Nss 1000ml) 1,000 mls @ 999 mls/hr IV .Q1H1M NIKKI Stop: 07/18/19 10:00 Last Infusion: 07/18/19 10:25 Dose: 0 mls/hr Documented by: [id number] Admin: 07/18/19 09:25 Dose: 999 mls/hr Documented by: [id number] Piperacillin Sod/Tazobactam Sod (Zosyn) 4.5 gm in 120 mls @ 240 mls/hr IV NOW ONE Stop: 07/18/19 10:40 Last Infusion: 07/18/19 11:58 Dose: 0 mls/hr Documented by: [id number] Admin: 07/18/19 11:08 Dose: 240 mls/hr Documented by: [id number] Morphine Sulfate (Morphine Sulfate) 10 mg IV NOW STA Stop: 07/18/19 11:36 Last Admin: 07/18/19 12:00 Dose: 10 mg Documented by: [id number] Medical Decision Making Laboratory Data Result diagrams: 07/18/19 09:15 07/18/19 09:15 Lab Results 07/18/19 07/18/19 07/18/19 Range/Units 09:15 09:15 09:15 WBC 9.73 (4.8-10.8) K/uL RBC 4.53 L (4.7-6.1) M/uL Hgb 13.8 L (14.0-18.0) g/dL Hct 39.5 L (42-52) % MCV 87.2 (80-100) fL MCH 30.5 (25-34) pg MCHC 34.9 (32-36) g/dL RDW Std Deviation 44.8 (36.4-46.3) fL RDW Coeff of Leonardo 14.0 (11.5-14.5) % Plt Count 192 (130-400) K/uL MPV 10.2 (7.4-10.4) fL Immature Gran % (Auto) 0.3 % Neut % (Auto) 72.0 % Lymph % (Auto) 10.6 % Terry % (Auto) 16.3 % Eos % (Auto) 0.6 % Baso % (Auto) 0.2 % Immature Gran # (Auto) 0.03 H (0.00-0.02) K/uL Neut # (Auto) 7.00 H (1.4-6.5) K/uL Lymph # (Auto) 1.03 L (1.2-3.4) K/uL Terry # (Auto) 1.59 H (0.11-0.59) K/uL Eos # (Auto) 0.06 (0-0.5) K/uL Baso # (Auto) 0.02 (0-0.2) K/uL ESR 69 H (0-14) mm/hr PT (9.0-12.0) Seconds INR (0.9-1.1) APTT (21.0-31.0) Seconds PTT Ratio Sodium (136-145) mmol/L Potassium (3.5-5.1) mmol/L Chloride (98-107) mmol/L Carbon Dioxide (21-32) mmol/L Anion Gap (3-11) BUN (7-18) mg/dl Creatinine (0.6-1.4) mg/dl Est Cr Clr Drug Dosing ml/min Est GFR ( Amer) Est GFR (Non-Af Amer) BUN/Creatinine Ratio (10-20) Glucose (70-99) mg/dl Lactate 1.0 (0.4-2.0) mmol/L Uric Acid (2.6-7.2) mg/dl Calcium (8.5-10.1) mg/dl Magnesium (1.8-2.4) mg/dl Total Bilirubin (0.2-1) mg/dl AST (15-37) U/L ALT (12-78) U/L Alkaline Phosphatase (45-117) U/L C-Reactive Protein (0-0.29) mg/dl Total Protein (6.4-8.2) gm/dl Albumin (3.4-5.0) gm/dl Globulin (2.5-4.0) gm/dl Albumin/Globulin Ratio (0.9-2) Procalcitonin (0-0.5) ng/ml 07/18/19 07/18/19 07/18/19 Range/Units 09:15 09:15 09:15 WBC (4.8-10.8) K/uL RBC (4.7-6.1) M/uL Hgb (14.0-18.0) g/dL Hct (42-52) % MCV (80-100) fL MCH (25-34) pg MCHC (32-36) g/dL RDW Std Deviation (36.4-46.3) fL RDW Coeff of Leonardo (11.5-14.5) % Plt Count (130-400) K/uL MPV (7.4-10.4) fL Immature Gran % (Auto) % Neut % (Auto) % Lymph % (Auto) % Terry % (Auto) % Eos % (Auto) % Baso % (Auto) % Immature Gran # (Auto) (0.00-0.02) K/uL Neut # (Auto) (1.4-6.5) K/uL Lymph # (Auto) (1.2-3.4) K/uL Terry # (Auto) (0.11-0.59) K/uL Eos # (Auto) (0-0.5) K/uL Baso # (Auto) (0-0.2) K/uL ESR (0-14) mm/hr PT 11.1 (9.0-12.0) Seconds INR 1.1 (0.9-1.1) APTT 30.2 (21.0-31.0) Seconds PTT Ratio 1.1 Sodium 130 L (136-145) mmol/L Potassium 4.1 (3.5-5.1) mmol/L Chloride 103 (98-107) mmol/L Carbon Dioxide 23 (21-32) mmol/L Anion Gap 4.0 (3-11) BUN 12 (7-18) mg/dl Creatinine 0.90 (0.6-1.4) mg/dl Est Cr Clr Drug Dosing 120.6 ml/min Est GFR ( Amer) 108.7 Est GFR (Non-Af Amer) 93.8 BUN/Creatinine Ratio 13.0 (10-20) Glucose 112 H (70-99) mg/dl Lactate (0.4-2.0) mmol/L Uric Acid 3.9 (2.6-7.2) mg/dl Calcium 9.1 (8.5-10.1) mg/dl Magnesium 1.9 (1.8-2.4) mg/dl Total Bilirubin 0.5 (0.2-1) mg/dl AST 67 H (15-37) U/L ALT 104 H (12-78) U/L Alkaline Phosphatase 94 (45-117) U/L C-Reactive Protein 14.60 H (0-0.29) mg/dl Total Protein 7.2 (6.4-8.2) gm/dl Albumin 3.3 L (3.4-5.0) gm/dl Globulin 3.9 (2.5-4.0) gm/dl Albumin/Globulin Ratio 0.8 L (0.9-2) Procalcitonin 0.16 (0-0.5) ng/ml Imaging Data Radiologist's Impression: XR chest 1V portable CLINICAL HISTORY: 59 years-old Male presenting with fever. TECHNIQUE: Portable upright AP view of the chest was obtained. COMPARISON: 10/14/2018. FINDINGS: Top normal size of the cardiac silhouette. No focal opacity. No large effusion or pneumothorax. Anterior cervical fusion hardware. Upper abdomen normal. IMPRESSION: 1. No acute cardiopulmonary disease. ACT 112: Negative or not required by law. Electronically signed by: Ced De La Garza M.D. 07/18/2019 9:57 AM US venous doppler LE LT CLINICAL HISTORY: 59 years-old Male presenting with edema, erythema, pending COVID test, left leg rash, headache and fever. TECHNIQUE: Real-time grayscale and color and spectral Doppler ultrasound imaging of the veins of the left lower extremity was performed. Compression and augmentation were also utilized. COMPARISON: None. FINDINGS: LEFT: Common femoral vein: Patent. Greater saphenous vein (superficial): Patent. Deep femoral vein: Patent. Femoral vein: Patent. Popliteal vein: Patent. Calf veins: Patent. Other: At the site of clinical interest, mild subcutaneous edema evident in the calf as well as several prominent lymph nodes in the left groin. Nodes have benign morphology. IMPRESSION: 1. No evidence of deep venous thrombosis. 2. Reactive left inguinal lymph nodes. ACT 112: Negative or not required by law. Electronically signed by: Ced De La Garza M.D. 07/18/2019 11:02 AM [facility] Narrative Patient was seen and evaluated as above in room A9. Review was performed of nursing notes and vital signs. I did review pertinent previous visits and patient history. After obtaining a thorough history and physical examination the above work up was performed. She presents to us today with fever, headache, left lower extremity edema with erythema for the past few days. This began on Sunday. There is no signs of meningitis or encephalitis on examination. No nuchal rigidity. No photophobia. I do not believe that a lumbar puncture at this time would be of benefit and believe the risk outweighs the benefit. The left lower extremity is impressive on exam. It is edematous. It is erythematous. This is concerning for cellulitis. Ultrasound negative for DVT. Chest x-ray negative. Empiric broad-spectrum antibiotics were ordered to include vancomycin and Zosyn. Fluids were also ordered. Labs were drawn. CBC reveals no leukocytosis. Mild anemia with hemoglobin of 13.8. ESR and CRP are significantly elevated. Coags are normal. No evidence of kidney failure. LFTs are mildly elevated. While in the department, I personally reevaluated the pat ient several times via phone and each time the patient was found to be resting comfortably. Given the patient's presentation I believe it is reasonable to be admitted to the hospital for further evaluation and management secondary to the amount of suspected cellulitis with his fever and presentation. Case discussed with the hospitalist. Please refer to further documentation regarding his stay. Case was discussed with the attending physician. In the evaluation and treatment of this patient the following differential diagnoses were entertained: Cellulitis, abscess, SJS, viral exanthem, meningeal rash, meningitis, encephalitis, dehydration, COVID-19, among others Impression & Plan Cellulitis of left leg, Edema of left lower leg, Headache, Fever Discharge Plan Visit Data Chief Complaint: Swelling/Edema to Extremity Stated Complaint: REDNESS/SWELLING IN LEGS,PENDING COVID RESULTS ED Provider: Solomon Gaming ED Midlevel Provider: Barrett Amador Discharge Problem: Cellulitis of left leg, Edema of left lower leg, Headache, Fever Patient Disposition: Admitted As Inpatient Condition: Good Forms Stand Alone Forms: My [facility], Important Visit Information Prescriptions Prescriptions: No Action cyanocobalamin (vitamin B-12) [Vitamin B-12] 1,000 mcg Tablet 0 mcg PO QAM RF: 0 lidocaine [Lidoderm] 5 % adhesive patch,medicated 1 patch TOP DAILY PRN (Reason: Pain) RF: 0 cholecalciferol (vitamin D3) [Vitamin D3] 400 unit Tablet,Chewable 0 unit PO QAM RF: 0 bupropion HCl [Wellbutrin SR] 150 mg Tablet Sustained-Release 12 Hr 150 mg PO QAM RF: 0 amlodipine 5 mg Tablet 5 mg PO HS RF: 0 fluoxetine 40 mg Capsule 40 mg PO QAM RF: 0 fentanyl 25 mcg/hr Patch 72 Hour 1 patch TRANSDERMAL Q72H RF: 0 multivitamin Tablet 1 tab PO QAM RF: 0 hydrocodone-acetaminophen 10-325 mg Tablet 1 tab PO Q6H PRN (Reason: Pain) RF: 0 montelukast [Singulair] 10 mg Tablet 10 mg PO QAM RF: 0 losartan 100 mg Tablet 100 mg PO HS RF: 0 pantoprazole 40 mg Tablet,Delayed Release (Dr/Ec) 40 mg PO QAM RF: 0 simvastatin 20 mg Tablet 20 mg PO PM RF: 0 pregabalin [Lyrica] 100 mg Capsule 100 mg PO BID RF: 0 metformin 500 mg tablet 1,000 mg PO BID RF: 0 Referrals Referrals: Ralph Dee MD [Primary Care Provider] -
[2019-07-18] MEDS ORDERED: SODIUM CHLORIDE 0.9% 1000ML 1,000 ML IV SCH (09:00)
[2019-07-18 09:36] LABS: Basophils # (auto) 0.02 K/uL (0-0.2); Basophils % (auto) 0.2 %; Eosinophils # (auto) 0.06 K/uL (0-0.5); Eosinophils % (auto) 0.6 %; Hematocrit (blood only) 39.5 % (42-52); Hemoglobin 13.8 g/dL (14.0-18.0); Immature Granulocytes # (auto) 0.03 K/uL (0.00-0.02); Immature Granulocytes % (auto) 0.3 %; Lymphocytes # (auto) 1.03 K/uL (1.2-3.4); Lymphocytes % (auto) 10.6 %; Mean Corpuscular Hemoglobin 30.5 pg (25-34); Mean Corpuscular Hgb Conc 34.9 g/dL (32-36); Mean Corpuscular Volume 87.2 fL (80-100); Mean Platelet Volume 10.2 fL (7.4-10.4); Monocytes # (auto) 1.59 K/uL (0.11-0.59); Monocytes % (auto) 16.3 %; Platelet Count 192 K/uL (130-400); RDW Standard Deviation 44.8 fL (36.4-46.3); Red Blood Count 4.53 M/uL (4.7-6.1); White Blood Count 9.73 K/uL (4.8-10.8)
[2019-07-18 09:51] LABS: Albumin Level 3.3 gm/dl (3.4-5.0); Calcium 9.1 mg/dl (8.5-10.1); Creatinine Clr Calc Pharmacy 120.6 ml/min; Est GFR (African American) 108.7; Est GFR (Non-African American) 93.8; Magnesium 1.9 mg/dl (1.8-2.4); Potassium 4.1 mmol/L (3.5-5.1)
[2019-07-18 09:55] LABS: Albumin Globulin Ratio 0.8 (0.9-2); Bilirubin,Total 0.5 mg/dl (0.2-1); C Reactive Protein 14.6 mg/dl (0-0.29); Globulin 3.9 gm/dl (2.5-4.0); Total Protein 7.2 gm/dl (6.4-8.2); Uric Acid 3.9 mg/dl (2.6-7.2)
--- NOTE | 2019-07-18 09:59 | XRay Report ---
XR chest 1V portable CLINICAL HISTORY: 59 years-old Male presenting with fever. TECHNIQUE: Portable upright AP view of the chest was obtained. COMPARISON: 10/14/2018. FINDINGS: Top normal size of the cardiac silhouette. No focal opacity. No large effusion or pneumothorax. Anter ior cervical fusion hardware. Upper abdomen normal. IMPRESSION: 1. No acute cardiopulmonary disease. ACT 112: Negative or not required by law. Electronically signed by: Ced De La Garza M.D. 07/18/2019 9:57 AM
[2019-07-18 10:01] LABS: INR 1.1 (0.9-1.1); Partial Thromboplastin Ratio 1.1; Partial Thromboplastin Time 30.2 Seconds (21.0-31.0); Prothrombin Time 11.1 Seconds (9.0-12.0)
[2019-07-18] MEDS ORDERED: VANCOMYCIN HCL 2,250 MG in SODIUM CHLORIDE 0.9% 500 ML IV ONE (10:11)
[2019-07-18] MEDS ORDERED: VANCOMYCIN CONSULT ACTIVE PRN ×2 (10:11→14:08)
[2019-07-18] MEDS ORDERED: PIPERACILLIN/TAZOBACTAM 4.5 GM/120 ML BAG IV ONE (10:11)
[2019-07-18] MEDS ORDERED: PIPERACILL/TAZOBAC CONSULT ACTIVE PRN ×2 (10:11→14:08)
--- NOTE | 2019-07-18 11:03 | Ultrasound Report ---
US venous doppler LE LT CLINICAL HISTORY: 59 years-old Male presenting with edema, erythema, pending COVID test, left leg lewis h, headache and fever. TECHNIQUE: Real-time grayscale and color and spectral Doppler ultrasound imaging of the veins of the left lower extremity was performed. Compression and augmentation were also utilized. COMPARISON: None. FINDINGS: LEFT: Common femoral vein: Patent. Greater saphenous vein (superficial): Patent. Deep femoral vein: Patent. Femoral vein: Patent. Popliteal vein: Patent. Calf veins: Patent. Other: At the site of clinical interest, mild subcutaneous edema evident in the calf as well as sever al prominent lymph nodes in the left groin. Nodes have benign morphology. IMPRESSION: 1. No evidence of deep venous thrombosis. 2. Reactive left inguinal lymph nodes. ACT 112: Negative or not required by law. Electronically signed by: Ced De La Garza M.D. 07/18/2019 11:02 AM
[2019-07-18] MEDS ORDERED: MoRPHine SULFATE 10 MG/ML CARP/VIAL IV STA (11:35)
--- NOTE | 2019-07-18 12:12 | History & Physical Report ---
Date of Service July 18, 2019 Assessment & Plan (1) Cellulitis of left leg: Patient's infection symptoms are likely secondary to cellulitis of left lower extremity. Continue Zosyn and vancomycin for now, await blood cultures. Monitor for clinical response. Consideration changing over to oral antibiotics to finish course depending on response. (2) Diabetes: Continue metformin for now. Will add low-dose sliding scale insulin along with an ADA diet. Check hemoglobin A1c. (3) Hypertension: Blood pressure currently stable, continue amlodipine and losartan as ordered. (4) Hyperlipidemia: Patient is on simvastatin 20 mg daily, will changes to atorvastatin 20 mg daily secondary to patient being on amlodipine. (5) GERD (gastroesophageal reflux disease): Continue Protonix as ordered (6) Lumbar radiculopathy: Patient is on hydrocodone as needed at home along with Duragesic patch, will continue both of these. I see patient is also on Lyrica which will be continued as well. History of Present Illness Primary Care Provider: Ralph Dee MD This a 59-year-old male with past medical history of cervical and lumbar stenosis with radiculopathy, type 2 diabetes mellitus, that presents today with left lower extremity edema. Patient is a very good historian. Patient tells me that approximately 5 days ago he woke up with a significant headache and a fever. Temp was 101.4 at home. He was also having diaphoresis which she noted was worse at night. Patient initially contacted his primary care physician and a COVID-19 sample was sent on 07/14. Patient symptoms persisted but then he started to notice that his left lower extremity started to swell, especially from the knee down. This was also causing some significant pain. He does typically have pain in his toes secondary to osteoarthritis but felt that this was much worse. The leg became mildly erythematous and warm to the touch. He was initially going to neuro but his pressure the patient seek further medical attention which eventually prompted his presentation to the emergency room. At time my evaluation, the patient was much more comfortable. He did is now on Zosyn and vancomycin per the ER and is being given analgesia. He has no further headache and remains afebrile. He denies any other infectious symptoms such as nausea or vomiting, visual changes, cough or shortness of breath. Also of note, the patient was placed in airborne precautions for the pending COVID-19. He was called by his PCP while he was here and was told that these results are negative. They now appear in our system and the airborne precautions were removed. Allergies Allergy/AdvReac Type Severity Reaction Status Date / Time Hydantoins Allergy Mild RASH Verified 07/18/19 09:45 phenytoin Allergy Mild RASH Verified 07/18/19 09:45 Home Medications Home Medications Medication Instructions Recorded Confirmed Type amlodipine 5 mg PO HS 10/10/18 07/18/19 History bupropion HCl [Wellbutrin SR] 150 mg PO QAM 10/10/18 07/18/19 History cholecalciferol (vitamin D3) 0 unit PO QAM 10/10/18 07/18/19 History [Vitamin D3] fentanyl 1 patch TRANSDERMAL Q72H 10/10/18 07/18/19 History fluoxetine 40 mg PO QAM 10/10/18 07/18/19 History hydrocodone-acetaminophen 1 tab PO Q6H PRN 10/10/18 07/18/19 History losartan 100 mg PO HS 10/10/18 07/18/19 History montelukast [Singulair] 10 mg PO QAM 10/10/18 07/18/19 History multivitamin 1 tab PO QAM 10/10/18 07/18/19 History pantoprazole 40 mg PO QAM 10/10/18 07/18/19 History pregabalin [Lyrica] 100 mg PO BID 10/10/18 07/18/19 History simvastatin 20 mg PO PM 10/10/18 07/18/19 History metformin 500 mg tablet 1,000 mg PO BID tab 01/20/19 07/18/19 History cyanocobalamin (vitamin B-12) 0 mcg PO QAM 07/06/19 07/18/19 History [Vitamin B-12] lidocaine [Lidoderm] 1 patch TOP DAILY PRN 07/18/19 07/18/19 History Past Med/Surg History Medical History Anxiety Depression Diabetes mellitus, type 2 BARDALES (dyspnea on exertion) Had stress testing via primary care 03/2018, WNL. GERD (gastroesophageal reflux disease) History of seizure ADOLESCENT - was weaned off of antiseizure meds around age 19, no issues since. Hx of concussion MAY 2018 - CAUSED NECK ISSUES Hx of sleep apnea HAD WEIGHT LOSS AND UPPV SURGERY - NO LONGER AN ISSUE Hyperlipidemia Hypertension Osteoarthritis Post traumatic stress disorder Seasonal asthma Uses inhalers mostly in springtime. Spinal stenosis in cervical region Spinal stenosis of lumbar region Surgical History History of carpal tunnel release of both wrists History of difficult intubation POSSIBLY--2013 ACDF for HNP, Glidescope used, but may be because of surgery/diagnosis rather than difficult intubation. MAC 3 ETT 7.5, grade view I for 2014 lumbar decompression/fusion. History of esophagogastroduodenoscopy (EGD) History of hydrocelectomy History of knee replacement procedure of left knee History of knee replacement procedure of right knee History of lumbar surgery X4 History of meniscectomy of left knee History of meniscectomy of right knee History of repair of anterior cruciate ligament of left knee History of repair of anterior cruciate ligament of right knee History of uvulopalatopharyngoplasty Hx of cervical spine surgery X3---last 10/2018 Hx of cholecystectomy Hx of decompression of ulnar nerve RIGHT Hx of lymph node excision RIGHT NECK Hx of nasal septoplasty Hx of tonsillectomy Family History Father Family history of diabetes mellitus Sinusitis Hypertension Heart disease Mother Sinusitis Hypertension Heart disease Stroke Other No family history of bleeding disorder Social History Preferred Language: Lao Communication Ability: Effective 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 Beliefs That Will Affect Care: None Current Living Situation: Spouse and Family Current Living Situation Comment: Lives with , mother in law, brother in law current occupational status: employed current occupation: [employer] Feels Safe at Home: Yes Smoking Status: Former smoker Tobacco Type: cigarettes ; Age Started Using Tobacco: 11 ; Age Quit Using Tobacco: 30 ; packs per day: 2 ; Second Hand Exposure: Yes (childhood/son smoked) ; Hx Alcohol Use: Yes Alcohol type: hard liquor Alcohol Intake Frequency Comment: 3-4 drinks/month Hx Substance Use: No Review of Systems Constitutional: + fever, + chills, + sweats and + body aches; no weakness, no weight loss and no weight gain Eyes: as per Subjective / HPI Respiratory: no cough, no chest congestion, no dyspnea and no dyspnea on exertion Cardiovascular: no chest pain, no orthopnea, no palpitations, no lightheadedness and no edema Gastrointestinal: no abdominal pain, no nausea, no vomiting, no constipation and no diarrhea/loose stools Musculoskeletal: + radicular pain and + swelling; no back pain, no neck pain, no joint pain, no stiffness and no myalgia Integumentary: no rash Neurologic: no gait abnormality, no unsteadiness, no falls and no generalized weakness Hematologic / Lymphatic: + night sweats Physical Exam Constitutional: cooperative; no acute distress Neck: trachea midline, no thyromegaly Respiratory: normal respiratory effort Auscultation: lungs clear to auscultation bilaterally; no crackles, no rales, no rhonchi and no wheezes Cardiovascular: Rate/Rhythm: regular rate and regular rhythm Heart Sounds: normal S1 and normal S2 Gastrointestinal (Abdomen): Inspection/Auscultation: abdomen normal to inspection Percussion/Palpation: abdomen soft; abdomen nontender, no guarding, abdomen not rigid and no hepatosplenomegaly Musculoskeletal: Left lower extremity with significant nondependent edema. Mild to moderate, well demarcated erythema in the pretibial area. Warm to the touch. Pulses intact. Skin: no rashes, warm and dry Results & Data Results & Data ([facility]) Vital Signs (Past 12 Hours) Vital Signs Temp Pulse Pulse Resp BP BP Pulse Ox 07/18/19 11:11 37.4 C 66 18 126/80 97 07/18/19 09:39 65 20 121/86 96 07/18/19 09:38 65 20 96 07/18/19 08:30 37.6 C H 100 H 24 109/87 95 Laboratory Results WBCs 9.7, hemoglobin 13.8, hematocrit of 39.5, platelets of 192. INR is 1.1. Sodium is 130, potassium 4.1, chloride 103, carbon dioxide of 23, BUN of 12, creatinine 0.9. Glucose of 112. Lactate is 1. Uric acid 3.9. Calcium is 9.1 with magnesium 1.9. CRP is 14.6. A transaminases mildly elevated with an AST of 67 and ALT of 104. Procalcitonin 0.16. As noted above, COVID-19 PCR from 4/21 is resulted is negative. Diagnostic Findings XR chest 1V portable CLINICAL HISTORY: 59 years-old Male presenting with fever. TECHNIQUE: Portable upright AP view of the chest was obtained. COMPARISON: 10/14/2018. FINDINGS: Top normal size of the cardiac silhouette. No focal opacity. No large effusion or pneumothorax. Anterior cervical fusion hardware. Upper abdomen normal. IMPRESSION: 1. No acute cardiopulmonary disease. --- US venous doppler LE LT CLINICAL HISTORY: 59 years-old Male presenting with edema, erythema, pending COVID test, left leg rash, headache and fever. TECHNIQUE: Real-time grayscale and color and spectral Doppler ultrasound imaging of the veins of the left lower extremity was performed. Compression and augmentation were also utilized. COMPARISON: None. FINDINGS: LEFT: Common femoral vein: Patent. Greater saphenous vein (superficial): Patent. Deep femoral vein: Patent. Femoral vein: Patent. Popliteal vein: Patent. Calf veins: Patent. Other: At the site of clinical interest, mild subcutaneous edema evident in the calf as well as several prominent lymph nodes in the left groin. Nodes have benign morphology. IMPRESSION: 1. No evidence of deep venous thrombosis. 2. Reactive left inguinal lymph nodes. PG Care Time/CCT Total # of Minutes Spent Total Time Spent with Patient: Total time spent is greater than 50% in coordination of care (as documented) at patient's floor/unit and/or counseling patient: Coding Level of Care Code 91514 Initial Inpt Care Lvl 3 Diagnoses Cellulitis of left leg L03.116 Diabetes E11.9 Hypertension I10 Hyperlipidemia E78.5 GERD (gastroesophageal reflux disease) K21.9 Lumbar radiculopathy M54.16
[2019-07-18] MEDS ORDERED: LIDOCAINE 5% 1 PATCH TD PRN (14:08)
[2019-07-18] MEDS ORDERED: DEXTROSE 50% 50 ML SYRINGE IV PRN (14:08)
[2019-07-18] MEDS ORDERED: ACETAMINOPHEN 325 MG TAB PO PRN (14:08)
[2019-07-18] MEDS ORDERED: GLUCAGON FOR INJ 1 MG VIAL SQ PRN (14:08)
[2019-07-18] MEDS ORDERED: GLUCOSE 40% GEL 15 GM TUBE PO PRN (14:08)
[2019-07-18] MEDS ORDERED: ONDANSETRON INJ 2 MG/ML 2 ML VIAL IV PRN (14:08)
[2019-07-18] MEDS ORDERED: CARBOHYDRATES FOR HYPOGLYCEMIA PO PRN (14:08)
[2019-07-18] MEDS ORDERED: GLUCOSE 10 TABS/TUBE PO PRN (14:08)
--- NOTE | 2019-07-18 15:26 | Pharmacy Report ---
Pharmacy Abx Initial Consult - Date of Service July 18, 2019 - Pharmacy Dosing Scope Date of Consult: 07/18/19 Consultation requested by: Dr. Wall Pharmacy is consulted to initiate vancomycin and Zosyn IV dosing therapy, order appropriate labs and adjust drug dose/frequency. - Subjective The patient is a 59 year old M admitted on 07/18/19 12:23. - Objective Height: 6 ft 2 in Weight: 115 kg Vital Signs (Past 12hrs): Vital Signs Temp Pulse Pulse Resp BP BP Pulse Ox 07/18/19 14:11 37.3 C 65 16 134/81 97 07/18/19 14:07 37.3 C 65 16 134/81 97 07/18/19 13:49 75 18 112/71 96 07/18/19 11:11 37.4 C 66 18 126/80 97 07/18/19 09:39 65 20 121/86 96 07/18/19 09:38 65 20 96 07/18/19 08:30 37.6 C H 100 H 24 109/87 95 Lab Results (24hrs): Laboratory Tests (24 Hours) 07/18/19 07/18/19 07/18/19 09:15 09:15 09:15 WBC Neut # (Auto) ESR 69 H Creatinine 0.90 Est Cr Clr Drug Dosing 120.6 C-Reactive Protein 14.60 H Procalcitonin 0.16 07/18/19 09:15 WBC 9.73 Neut # (Auto) 7.00 H ESR Creatinine Est Cr Clr Drug Dosing C-Reactive Protein Procalcitonin Micro Results: 07/18/19 09:20 Aerobic Blood Culture - Pending Blood Anaerobic Blood Culture - Pending 07/18/19 09:15 Aerobic Blood Culture - Pending Blood Anaerobic Blood Culture - Pending - Risk Factors for Resistance * Type 2 DM - Assessment & Plan Assessment 59 year old M ordered empiric vancomycin and zosyn for treatment of cellulitis of left lower extremity. Patient presented to ED after noticing left lower extremity swelling and pain. Patient also had fever and headache at home 5 days ago - subsequently negative for Covid-19. Doppler negative for DVT. Blood cultures x 2 pending. Patient without significant risk factor for MDR organisms. Can hopefully de-escalate antibiotics as patient improves. Plan Vancomycin IV * Estimated PK Parameters: Vd 0.6 L/kg, [place] 0.087 hr-1, t1/2 8 hr * Loading dose: 2250 mg (20 mg/kg) * Maintenance dose: 1500 mg IV (13 mg/kg) every 12 hours * Goal trough level for cellulitis : 10 to 20 mcg/mL * Trough level ordered for 07/20/19 Piperacillin/tazobactam * 4.5 g bolus administered over 30 minutes, then 3.375 g IV extended infusion every 8 hours for CrCl greater than 20 mL/min OR every 12 hours for CrCl 20 mL/min or less and dialysis. Pharmacy will continue to follow and will adjust dose/frequency as necessary. Thank you.
[2019-07-18 15:42] LABS: Appearance Urine Clear (Clear); Bilirubin Urine Negative (Negative); Blood Urine Negative (Negative); Color Urine Yellow; Glucose Urine UA Negative (Negative); Ketones Urine Negative (Negative); Leukocyte Esterase Urine Negative (Negative); Nitrite Urine Negative (Negative); Protein Urine Negative (Negative); Specific Gravity Urine 1.014 (1.000-1.030); Urobilinogen Urine Negative (Negative); pH Urine 5.5 (4.5-7.5)
[2019-07-18] MEDS: PIPERACILLIN/TAZOBACTAM 3.375 GM in DEXTROSE 5% 100 ML IV SCH ×2 (15:46→23:30)
[2019-07-18] MEDS: ENOXAPARIN INJ 40 MG/0.4 ML SYR SQ SCH (15:46)
[2019-07-18] MEDS: CHECK FENTANYL PATCH PLACEMENT SCH ×2 (15:48→23:30)
[2019-07-18] MEDS: HYDROCODONE/ACETAMINOPHEN 10/325 TAB PO PRN ×2 (17:19→23:29)
[2019-07-18] MEDS: INSULIN ASPART 100 UNITS/ML 3 ML PEN SC SCH ×2 (18:03→21:15)
[2019-07-18] MEDS: PREGABALIN 100 MG CAP PO SCH (20:30)
[2019-07-18] MEDS: LOSARTAN POTASSIUM 50 MG TAB PO SCH (20:30)
[2019-07-18] MEDS: AMLODIPINE BESYLATE 5 MG TAB PO SCH (20:30)
[2019-07-18] MEDS: MONTELUKAST SODIUM 10 MG TABLET PO SCH (20:30)
[2019-07-18] MEDS ORDERED: METFORMIN HCL 500 MG TAB PO SCH (21:00)
[2019-07-18] MEDS ORDERED: VANCOMYCIN HCL 1,500 MG in SODIUM CHLORIDE 0.9% 500 ML IV SCH (22:00)
[2019-07-19 06:02] LABS: Basophils # (auto) 0.03 K/uL (0-0.2); Basophils % (auto) 0.4 %; Eosinophils # (auto) 0.12 K/uL (0-0.5); Eosinophils % (auto) 1.4 %; Hematocrit (blood only) 39.1 % (42-52); Hemoglobin 13.5 g/dL (14.0-18.0); Immature Granulocytes # (auto) 0.03 K/uL (0.00-0.02); Immature Granulocytes % (auto) 0.4 %; Lymphocytes # (auto) 1.17 K/uL (1.2-3.4); Mean Corpuscular Hgb Conc 34.5 g/dL (32-36); Mean Corpuscular Volume 86.9 fL (80-100); Mean Platelet Volume 10.9 fL (7.4-10.4); Monocytes # (auto) 1.35 K/uL (0.11-0.59); Monocytes % (auto) 16.2 %; Neutrophils # (auto) 5.64 K/uL (1.4-6.5); Neutrophils % (auto) 67.6 %; Platelet Count 188 K/uL (130-400); RDW Coefficient of Variation 13.9 % (11.5-14.5); RDW Standard Deviation 44.7 fL (36.4-46.3); White Blood Count 8.34 K/uL (4.8-10.8)
[2019-07-19 06:47] LABS: BUN Creatinine Ratio 13.4 (10-20); Calcium 9.3 mg/dl (8.5-10.1); Creatinine Clr Calc Pharmacy 129.2 ml/min; Est GFR (African American) 111.9; Est GFR (Non-African American) 96.5; Magnesium 2.1 mg/dl (1.8-2.4)
[2019-07-19 07:27] LABS: Estimated Average Glucose 128 mg/dl; Hemoglobin A1C 6.1 % (4.5-5.6)
[2019-07-19] MEDS: PANTOprazole 40 MG TAB PO SCH (07:40)
[2019-07-19] MEDS: HYDROCODONE/ACETAMINOPHEN 10/325 TAB PO PRN ×3 (07:40→19:40)
[2019-07-19] MEDS: FLUOXETINE HCL 20 MG CAP PO SCH (07:40)
[2019-07-19] MEDS: PREGABALIN 100 MG CAP PO SCH ×3 (07:40→20:44)
[2019-07-19] MEDS: MULTIVITAMIN TAB PO SCH (07:41)
[2019-07-19] MEDS: ATORVASTATIN 20 MG TAB PO SCH (07:41)
[2019-07-19] MEDS: CYANOCOBALAMIN 500 MCG TABLET (VITAMIN B-12) PO SCH (07:42)
[2019-07-19] MEDS: CHOLECALCIFEROL 1,000 UNITS 25 MCG TAB PO SCH (07:42)
[2019-07-19] MEDS: CHECK FENTANYL PATCH PLACEMENT SCH ×2 (07:42→15:34)
[2019-07-19] MEDS: BuPROPion SR 150 MG TABCR PO SCH (07:43)
[2019-07-19] MEDS: PIPERACILLIN/TAZOBACTAM 3.375 GM in DEXTROSE 5% 100 ML IV SCH ×2 (07:46→15:38)
[2019-07-19] MEDS: INSULIN ASPART 100 UNITS/ML 3 ML PEN SC SCH ×4 (08:36→20:32)
[2019-07-19] MEDS ORDERED: VANCOMYCIN HCL 1,000 MG/270 ML BAG IV SCH (09:00)
--- NOTE | 2019-07-19 09:37 | Hospitalist Progress Note ---
Date of Service July 19, 2019 Assessment & Plan (1) Cellulitis of left leg: Patient's infection symptoms are likely secondary to cellulitis of left lower extremity. Continue Zosyn and vancomycin for now, await blood cultures. Monitor for clinical response. Consideration changing over to oral antibiotics to finish course depending on response. Alternatively this could also be a patch of shingles but not yet developed into the vesicular form we will continue to watch, also consider contact dermatitis (2) Diabetes: Continue metformin and sliding scale insulin along with an ADA diet. Checked hemoglobin A1c in the 6 range. (3) Hypertension: Blood pressure remains stable, continues on amlodipine and losartan (4) Hyperlipidemia: Patient is on simvastatin 20 mg daily, will changes to atorvastatin 20 mg daily secondary to patient being on amlodipine. (5) GERD (gastroesophageal reflux disease): Continue Protonix as ordered (6) Lumbar radiculopathy: Patient is on hydrocodone as needed at home along with Duragesic patch, will continue both of these. pt has some pain control issues will increase lyrica and hydrocodone at this time. Admission and Anticipated Discharge Date Admission Date: July 18, 2019 Subjective Patient has significant pain in his leg associate with his erythema worsened in the dependent position also acute on chronic back pain reportedly with recent [facility] Review of Systems Review of Systems: Moderate distress and fatigue no headache, blurry or double vision no speech or swallowing issues no chest pain, pressure or palpitations no shortness of breath, cough or wheezes no abdominal pain, nausea or vomiting, diarrhea or constipation no dysuria, hematuria or frequency no focal joint pain or swelling patient does have back pain at the lower thoracic area no CVA tenderness pain does not radiate except around his torso does not go down his legs no bruising, bleeding has redness to his lower leg no focal signs of weakness or numbness or altered sensation no complaints or anxiety or depression Physical Exam Physical Exam: The patient appeared well nourished and normally developed. Vital signs as documented. Head exam is unremarkable. No scleral icterus Neck is without JVD, thyromegaly, or carotid bruits. Lungs are clear to auscultation and percussion. Cardiac exam, Rhythm is regular.. No murmurs, rubs or gallops. Abdominal exam reveals normal bowel sounds, soft non tender, no masses Extremities left lower leg has focal erythema with appears to have some small blistering within it difficult to tell whether it cellulitis dermatitis or even shingles. Going against shingles is not as tender as I would expect her expected to be much more tender if it were to be shingles Neurologic exam is alert and oriented, no focal loss of strength or sensation Skin is with will demarcated erythema and large patches of his left lower leg has some scaly skin on his feet and toes with no defined portal of entry Psychologically is without concerns for anxiety or depression Results & Data Results & [facility] ([facility]) Vital Signs (Past 12 Hours) Vital Signs Temp Pulse Resp BP BP Pulse Ox 07/19/19 07:30 98.6 F 64 16 106/65 95 07/18/19 23:23 98.4 F 72 16 139/84 96 PG Care Time/CCT Total # of Minutes Spent Total Time Spent with Patient: Total time spent is greater than 50% in coordination of care (as documented) at patient's floor/unit and/or counseling patient: Coding Level of Care Code 44985 Subseq Hosp Care Lvl 2 Diagnoses Cellulitis of left leg L03.116 Diabetes E11.9 Hypertension I10 Hyperlipidemia E78.5 GERD (gastroesophageal reflux disease) K21.9 Lumbar radiculopathy M54.16
[2019-07-19] MEDS: VANCOMYCIN HCL 1,000 MG in SODIUM CHLORIDE 0.9% 250 ML IV SCH ×2 (09:51→18:17)
[2019-07-19] MEDS: LIDOCAINE 5% 1 PATCH TD SCH (13:34)
[2019-07-19] MEDS: ENOXAPARIN INJ 40 MG/0.4 ML SYR SQ SCH (15:34)
[2019-07-19] MEDS: AMLODIPINE BESYLATE 5 MG TAB PO SCH (20:40)
[2019-07-19] MEDS: LOSARTAN POTASSIUM 50 MG TAB PO SCH (20:41)
[2019-07-19] MEDS: MONTELUKAST SODIUM 10 MG TABLET PO SCH (20:41)
[2019-07-20] MEDS: CHECK FENTANYL PATCH PLACEMENT SCH ×3 (00:45→16:26)
[2019-07-20] MEDS: PIPERACILLIN/TAZOBACTAM 3.375 GM in DEXTROSE 5% 100 ML IV SCH ×3 (00:45→16:34)
[2019-07-20] MEDS: VANCOMYCIN HCL 1,000 MG in SODIUM CHLORIDE 0.9% 250 ML IV SCH ×3 (02:23→17:54)
[2019-07-20] MEDS: HYDROCODONE/ACETAMINOPHEN 10/325 TAB PO PRN ×2 (04:56→16:33)
[2019-07-20] MEDS: INSULIN ASPART 100 UNITS/ML 3 ML PEN SC SCH ×4 (08:31→22:01)
[2019-07-20] MEDS: PREGABALIN 100 MG CAP PO SCH ×3 (08:39→21:32)
[2019-07-20] MEDS: ATORVASTATIN 20 MG TAB PO SCH (08:44)
[2019-07-20] MEDS: LIDOCAINE 5% 1 PATCH TD SCH (08:44)
[2019-07-20] MEDS: MULTIVITAMIN TAB PO SCH (08:44)
[2019-07-20] MEDS: PANTOprazole 40 MG TAB PO SCH (08:45)
[2019-07-20] MEDS: FLUOXETINE HCL 20 MG CAP PO SCH (08:45)
[2019-07-20] MEDS: BuPROPion SR 150 MG TABCR PO SCH (08:45)
[2019-07-20] MEDS: CHOLECALCIFEROL 1,000 UNITS 25 MCG TAB PO SCH (08:46)
[2019-07-20] MEDS: CYANOCOBALAMIN 500 MCG TABLET (VITAMIN B-12) PO SCH (08:46)
[2019-07-20] MEDS ORDERED: fentaNYL 25 MCG/HR TDSY TD SCH (09:00)
[2019-07-20] MEDS ORDERED: VANCOMYCIN TROUGH ONE (09:30)
--- NOTE | 2019-07-20 14:26 | Pharmacy Report ---
Pharmacy Abx Dose Short Note - Date of Service July 20, 2019 - Assessment & Plan Assessment 59 year old M receiving empiric vancomycin and Zosyn for treatment of LLE cellulitis Day # 3 of antimicrobial therapy. Blood cultures x 2: no growth at 48 hours, patient remains afebrile. Will reasse ss renal function with AM labs. Plan Vancomycin * Trough level of 10 mcg/mL is therapeutic * Continue dose of 1000 mg IV every 8 hours * Goal trough level for cellulitis : 10 to 20 mcg/mL * Trough level ordered for: 07/22/19 Zosyn * 3.375 g IV q8h remains appropriate Pharmacy will continue to follow and will adjust dose/frequency as necessary. Thank you.
[2019-07-20] MEDS: ENOXAPARIN INJ 40 MG/0.4 ML SYR SQ SCH (14:41)
--- NOTE | 2019-07-20 17:43 | Hospitalist Progress Note ---
Date of Service July 20, 2019 Assessment & Plan (1) Cellulitis of left leg: Patient's infection symptoms are likely secondary to cellulitis of left lower extremity. Continue Zosyn and vancomycin for now, current blood cultures are negative Patient had a minor improvement over last 24 hours hopeful have a major change in the next 24 hours. Area of erythema is demarcated with a skin marker Consideration changing over to oral antibiotics to finish course depending on response. (2) Diabetes: Continues on metformin and sliding scale insulin along with an ADA diet. Checked hemoglobin A1c in the 6 range. (3) Hypertension: Blood pressure remains stable on amlodipine and losartan (4) Hyperlipidemia: Patient is on simvastatin 20 mg daily, this was changed to atorvastatin by admitting doctor due to potential of amlodipine to raise zocor levels in blood affeting liver function (5) GERD (gastroesophageal reflux disease): Continue Protonix as ordered (6) Lumbar radiculopathy: Patient is on hydrocodone as needed at home along with Duragesic patch, will continue both of these. pt has some pain control issues will increase lyrica and hydrocodone at this time. Admission and Anticipated Discharge Date Admission Date: July 18, 2019 Subjective Patient is leg is somewhat improved but refining still operator when he bears weight or has it in a dependent position. The areas of concern for vesicles have not progressed therefore makes this being a contact dermatitis or shingles much less likely and likely more consistent with a diabetic leg infection and cellulitis Review of Systems Review of Systems: Mild distress and fatigue no headache, blurry or double vision no speech or swallowing issues no chest pain, pressure or palpitations no shortness of breath, cough or wheezes no abdominal pain, nausea or vomiting, diarrhea or constipation no dysuria, hematuria or frequency no focal joint pain or swelling no back pain, CVA tenderness or radicular pain Patient has spiral area of erythema starting his foot and going up and around his lower leg on the left is erythematous and tender no focal signs of weakness or numbness or altered sensation no complaints or anxiety or depression Physical Exam Physical Exam: The patient appeared well nourished and normally developed. Vital signs as documented. Head exam is unremarkable. No scleral icterus Neck is without JVD, thyromegaly, or carotid bruits. Lungs are clear to auscultation, no focal loss of breath sounds Cardiac exam, Rhythm is regular.. No murmurs, rubs or gallops. Abdominal exam reveals normal bowel sounds, soft non tender, no masses Extremities are nonedematous and both pedal pulses are normal. Neurologic exam is alert and oriented, no focal loss of strength or sensation Skin is with well demarcated erythema with some raised areas within it on his left lower extremity starting his foot and radiating a circular fashion from the dorsum of his foot to the posterior calf. This is slightly less erythematous than 1 day prior Psychologically is without concerns for anxiety or depression Results & Data Results & Data ([facility]) Vital Signs (Past 12 Hours) Vital Signs Temp Pulse Resp BP Pulse Ox 07/20/19 15:36 99.1 F 57 L 16 125/73 97 07/20/19 07:38 98.4 F 61 18 130/71 94 PG Care Time/CCT Total # of Minutes Spent Total Time Spent with Patient: Total time spent is greater than 50% in coordination of care (as documented) at patient's floor/unit and/or counseling patient: Coding Level of Care Code 99674 Subseq Hosp Care Lvl 2 Diagnoses Cellulitis of left leg L03.116 Diabetes E11.9 Hypertension I10 Hyperlipidemia E78.5 GERD (gastroesophageal reflux disease) K21.9 Lumbar radiculopathy M54.16
[2019-07-20] MEDS: LOSARTAN POTASSIUM 50 MG TAB PO SCH (21:32)
[2019-07-20] MEDS: AMLODIPINE BESYLATE 5 MG TAB PO SCH (21:33)
[2019-07-20] MEDS: MONTELUKAST SODIUM 10 MG TABLET PO SCH (21:34)
[2019-07-21] MEDS: HYDROCODONE/ACETAMINOPHEN 10/325 TAB PO PRN ×3 (00:04→15:31)
[2019-07-21] MEDS: PIPERACILLIN/TAZOBACTAM 3.375 GM in DEXTROSE 5% 100 ML IV SCH ×3 (00:04→15:24)
[2019-07-21] MEDS: CHECK FENTANYL PATCH PLACEMENT SCH ×3 (00:06→15:19)
[2019-07-21] MEDS: VANCOMYCIN HCL 1,000 MG in SODIUM CHLORIDE 0.9% 250 ML IV SCH ×2 (02:37→10:20)
[2019-07-21 07:24] LABS: Creatinine Clr Calc Pharmacy 123.4 ml/min; Est GFR (African American) 109.7; Est GFR (Non-African American) 94.7
[2019-07-21] MEDS: PREGABALIN 100 MG CAP PO SCH ×2 (08:55→14:04)
[2019-07-21] MEDS: CHOLECALCIFEROL 1,000 UNITS 25 MCG TAB PO SCH (08:55)
[2019-07-21] MEDS: ATORVASTATIN 20 MG TAB PO SCH (08:56)
[2019-07-21] MEDS: PANTOprazole 40 MG TAB PO SCH (08:56)
[2019-07-21] MEDS: CYANOCOBALAMIN 500 MCG TABLET (VITAMIN B-12) PO SCH (08:56)
[2019-07-21] MEDS: MULTIVITAMIN TAB PO SCH (08:56)
[2019-07-21] MEDS: FLUOXETINE HCL 20 MG CAP PO SCH (08:57)
[2019-07-21] MEDS: BuPROPion SR 150 MG TABCR PO SCH (08:57)
[2019-07-21] MEDS: LIDOCAINE 5% 1 PATCH TD SCH (09:01)
[2019-07-21] MEDS: INSULIN ASPART 100 UNITS/ML 3 ML PEN SC SCH ×2 (09:01→12:59)
[2019-07-21] MEDS: ENOXAPARIN INJ 40 MG/0.4 ML SYR SQ SCH (14:32)
--- NOTE | 2019-07-21 16:04 | Discharge Summary ---
Date of Service July 21, 2019 Admission HPI Per Admitting Provider This a 59-year-old male with past medical history of cervical and lumbar stenosis with radiculopathy, type 2 diabetes mellitus, that presents today with left lower extremity edema. Patient is a very good historian. Patient tells me that approximately 5 days ago he woke up with a significant headache and a fever. Temp was 101.4 at home. He was also having diaphoresis which she noted was worse at night. Patient initially contacted his primary care physician and a COVID-19 sample was sent on 07/14. Patient symptoms persisted but then he started to notice that his left lower extremity started to swell, especially from the knee down. This was also causing some significant pain. He does typically have pain in his toes secondary to osteoarthritis but felt that this was much worse. The leg became mildly erythematous and warm to the touch. He was initially going to neuro but his pressure the patient seek further medical attention which eventually prompted his presentation to the emergency room. At time my evaluation, the patient was much more comfortable. He did is now on Zosyn and vancomycin per the ER and is being given analgesia. He has no further headache and remains afebrile. He denies any other infectious symptoms such as nausea or vomiting, visual changes, cough or shortness of breath. Also of note, the patient was placed in airborne precautions for the pending COVID-19. He was called by his PCP while he was here and was told that these results are negative. They now appear in our system and the airborne precautions were removed. Principal Diagnosis Left lower extremity cellulitis Discharge Exam Constitutional WD/WN, vitals as above Eyes PERRL, conjunctivae normal, anicteric sclerae ENMT external ear and nose normal, oropharynx normal Neck trachea midline, no thyromegaly Respiratory normal respiratory effort, lungs clear to auscultation Cardiovascular RRR, no murmur, no edema Gastrointestinal (Abdomen) normal bowel sounds, soft, nontender, no hepatosplenomegaly Musculoskeletal no cyanosis or clubbing, extremities motor strength 5/5 Skin normal turgor, + rash (left lower extremity cellulitis, receding from initial border, warm) and + erythema; no jaundice Neurologic patellar DTR's 2+ bilat, sensation intact and PERRL, EOMI, accommodation nl, no face palsy, no dysarthria Psychiatric A+Ox3, euthymic affect Lymphatic no cervical or axillary lymphadenopathy Discharge Data Allergies Allergy/AdvReac Type Severity Reaction Status Date / Time Hydantoins Allergy Mild RASH Verified 07/18/19 09:45 phenytoin Allergy Mild RASH Verified 07/18/19 09:45 Consultations 07/18/19 11:13 ED Decision to Admit Stat Ordered Studies 07/18/19 08:59 US venous doppler LE LT Stat Hospital Course (1) Cellulitis of left leg: Patient's infection symptoms are likely secondary to cellulitis of left lower extremity. treated with Zosyn and vancomycin no growth on blood cultures after 5 days Patient had a minor improvement initially but then marked improvement in next 24 hours. Area of erythema is demarcated with a skin marker, it is receding, warm but not hot small vesicles posteriorly but not breaking d/c on Augmentin for 11 more days to complete a 14 day course follow up with PCP next week to review progress (2) Diabetes: Continues on metformin and sliding scale insulin along with an ADA diet. Checked hemoglobin A1c in the 6 range. (3) Hypertension: Blood pressure remains stable on amlodipine and losartan (4) Hyperlipidemia: Patient is on simvastatin 20 mg daily (5) GERD (gastroesophageal reflux disease): Continue Protonix as ordered (6) Lumbar radiculopathy: Patient is on hydrocodone as needed at home along with Duragesic patch, will continue both of these. pt has some pain control issues will increase lyrica and hydrocodone at this time. Total Time Total Time Spent Total Time Spent (In Minutes): 32 minutes Total Time Includes: Examination of the Patient, Discharge Planning and Medication Reconciliation Discharge Plan Discharge Items Patient Disposition: Home - Self-Care Reason For Visit: CELLULITIS Discharge Diagnosis: Left leg cellulitis Condition on Discharge: Good Goals: complete course of Augmentin Activity: Resume your previous activity Driving/Machine Use: No limitations Weightbearing: Full weightbearing Non-emergency contact: Primary Care Provider Call non-emergency contact if: you have any medication questions, your symptoms worsen and you have a fever Follow-up/Referrals: Ralph Dee MD [Primary Care Provider] - (one week) Diet: Carb Consistent or DM2 Addtl Attending Provider Instructions: Medications: - AUGMENTIN: take twice a day for 22 more doses (11 days), start taking this evening Left leg cellulitis improved on IV antibiotics, redness decreased, no fever, WBC normal, less pain no growth on blood cultures will treat with Augmentin for 11 more days please follow up with Dr. Dee in one week Pending Studies at Discharge: No Stand-Alone Forms: My [facility], Smoking Cessation Medications and DC Order Prescriptions: New amoxicillin-pot clavulanate [Augmentin] 875-125 mg tablet 1 tab PO BID Qty: 22 RF: 0 Continued cyanocobalamin (vitamin B-12) [Vitamin B-12] 1,000 mcg Tablet 0 mcg PO QAM RF: 0 lidocaine [Lidoderm] 5 % adhesive patch,medicated 1 patch TOP DAILY PRN (Reason: Pain) RF: 0 cholecalciferol (vitamin D3) [Vitamin D3] 400 unit Tablet,Chewable 0 unit PO QAM RF: 0 bupropion HCl [Wellbutrin SR] 150 mg Tablet Sustained-Release 12 Hr 150 mg PO QAM RF: 0 amlodipine 5 mg Tablet 5 mg PO HS RF: 0 fluoxetine 40 mg Capsule 40 mg PO QAM RF: 0 fentanyl 25 mcg/hr Patch 72 Hour 1 patch TRANSDERMAL Q72H RF: 0 multivitamin Tablet 1 tab PO QAM RF: 0 hydrocodone-acetaminophen 10-325 mg Tablet 1 tab PO Q6H PRN (Reason: Pain) RF: 0 montelukast [Singulair] 10 mg Tablet 10 mg PO QAM RF: 0 losartan 100 mg Tablet 100 mg PO HS RF: 0 pantoprazole 40 mg Tablet,Delayed Release (Dr/Ec) 40 mg PO QAM RF: 0 simvastatin 20 mg Tablet 20 mg PO PM RF: 0 pregabalin [Lyrica] 100 mg Capsule 100 mg PO BID RF: 0 metformin 500 mg tablet 1,000 mg PO BID RF: 0 Discharge Orders: Discharge Order (Routine); Ordered 07/21/19 Ordered By: Philipp Fuller/Other Patient Handouts: 2019-nCoV, Discharge Instructions for Cellulitis, A1C Admission Data Admit Date/Time: 07/18/19 12:23 Attending Provider: Hector Tobar Admit Provider: Phil Wall Primary Care Provider: Ralph Dee Other Providers: Philipp Young Other Interventions: Discharge Summary Assessment (RN) Last Done: 07/21/19 16:53 DC Date/Time DO NOT enter until pt leaves facility: 07/21/19 17:31 Coding Level of Care Code D/C Day Management >30 mins Diagnoses Cellulitis of left leg L03.116 Diabetes E11.9 Hypertension I10 Hyperlipidemia E78.5 GERD (gastroesophageal reflux disease) K21.9 Lumbar radiculopathy M54.16
[2019-07-22] MEDS ORDERED: VANCOMYCIN TROUGH ONE (09:30)
== END 2019-07-21 17:31 | disposition home or self-care (01) | DRG 638 ==
LOC: ED 08:22 → 3E 12:23 → SUATTDRO 12:23 → 3E 13:43

== ENCOUNTER 2021-12-16 06:15 | Observation (INO) ==
--- NOTE | 2021-11-01 10:04 | PAT Medication Instructions ---
Medication Instructions Date of Service November 01, 2021 Home Medications amlodipine 5 mg tablet 5 mg PO HS bupropion HCl 150 mg tablet,12 hr sustained-release (Wellbutrin SR) 150 mg PO QAM cholecalciferol (vitamin D3) 10 mcg (400 unit) chewable tablet (Vitamin D3) 400 unit PO QAM fentanyl 25 mcg/hr transdermal patch 1 patch transdermal Q72H fluoxetine 40 mg capsule 40 mg PO QAM hydrocodone 10 mg-acetaminophen 325 mg tablet 1 tab PO Q6H PRN Pain losartan 100 mg tablet 100 mg PO HS montelukast 10 mg tablet (Singulair) 10 mg PO QAM multivitamin 1 tab PO QAM pantoprazole 40 mg tablet,delayed release 40 mg PO QAM pregabalin 100 mg capsule (Lyrica) 100 mg PO BID simvastatin 20 mg tablet 20 mg PO HS metformin 500 mg tablet 1,000 mg PO BID cyanocobalamin (vitamin B-12) 1,000 mcg tablet (Vitamin B-12) 1,000 mcg PO QAM furosemide 80 mg tablet 80 mg PO BID Continue as directed fentanyl 25 mcg/hr transdermal patch 1 patch transdermal Q72H (avoid placement over surgery site) DO NOT take the morning of surgery cholecalciferol (vitamin D3) 10 mcg (400 unit) chewable tablet (Vitamin D3) 400 unit PO QAM montelukast 10 mg tablet (Singulair) 10 mg PO QAM multivitamin 1 tab PO QAM metformin 500 mg tablet 1,000 mg PO BID cyanocobalamin (vitamin B-12) 1,000 mcg tablet (Vitamin B-12) 1,000 mcg PO QAM furosemide 80 mg tablet 80 mg PO BID Take morning of surgery With a small sip of water, OTHERWISE NOTHING TO EAT OR DRINK AFTER MIDNIGHT: bupropion HCl 150 mg tablet,12 hr sustained-release (Wellbutrin SR) 150 mg PO QAM fluoxetine 40 mg capsule 40 mg PO QAM hydrocodone 10 mg-acetaminophen 325 mg tablet 1 tab PO Q6H PRN Pain (okay to take up to 4 hours prior to surgery if needed) pantoprazole 40 mg tablet,delayed release 40 mg PO QAM pregabalin 100 mg capsule (Lyrica) 100 mg PO BID Take evening before surgery amlodipine 5 mg tablet 5 mg PO HS hydrocodone 10 mg-acetaminophen 325 mg tablet 1 tab PO Q6H PRN Pain (if needed) losartan 100 mg tablet 100 mg PO HS pregabalin 100 mg capsule (Lyrica) 100 mg PO BID simvastatin 20 mg tablet 20 mg PO HS metformin 500 mg tablet 1,000 mg PO BID furosemide 80 mg tablet 80 mg PO BID Other Notes If you have any questions please call us at [phone] or [phone] or [phone] or [phone]
--- NOTE | 2021-11-07 09:03 | Anesthesiology Consultation ---
Date of Service November 07, 2021 Assessment & Plan (1) Encounter for pre-operative examination: - COVID screening: Per assessment on 11/07: No known COVID-19 positive contacts or current COVID-19 related symptoms. Travel screen- negative x2+ weeks. Patient vaccinated. At surgeon discretion if preop Covid testing being obtained. - S/P C4 corpectomy, C3-5 fusion (10/30/18): Grade view 1 with Glidescope #4, ETT 8.0 at [facility]. No issues noted per post-op anesthesia progress note. - Check BSG AM DOS Chart Review Chart Review: Acceptable Risk for Surgery and Patient seen in Pre Admission Testing Teaching & Discussion Pre-Anesthesia Teaching/Discussion Notes: Instructed NPO after midnight before surgery,except medications with 15 cc of water. Medication instructions provided according to the PAT guidelines. History Surgery Operation Date: 11/21/21 10:05 Proposed Procedures p C7-T1 Anterior Cervical Discectomy and Fusion, Possible C6-C7, Hardware Remov al, Spinal cord Monitoring - Mikel Gregory, Height/Weight Height: 6 ft 1 in Weight: 92.6 kg Allergies Allergy/AdvReac Type Severity Reaction Status Date / Time phenytoin [From Dilantin] Allergy Rash Verified 11/03/21 10:14 Medications Home Medications Medication Instructions Recorded Confirmed Last Taken amlodipine 5 mg tablet 5 mg PO HS 10/10/18 10/28/21 07/17/19 bupropion HCl 150 mg tablet,12 hr 150 mg PO QAM 10/10/18 10/28/21 07/18/19 sustained-release (Wellbutrin SR) cholecalciferol (vitamin D3) 10 400 unit PO QAM 10/10/18 10/28/21 07/18/19 mcg (400 unit) chewable tablet (Vitamin D3) fentanyl 25 mcg/hr transdermal 1 patch transdermal Q72H 10/10/18 10/28/21 07/17/19 patch fluoxetine 40 mg capsule 40 mg PO QAM 10/10/18 10/28/21 07/18/19 hydrocodone 10 mg-acetaminophen 1 tab PO Q6H PRN Pain 10/10/18 10/28/21 03/06/19 04:00 325 mg tablet losartan 100 mg tablet 100 mg PO HS 10/10/18 10/28/21 07/17/19 montelukast 10 mg tablet 10 mg PO QAM 10/10/18 10/28/21 07/18/19 (Singulair) multivitamin 1 tab PO QAM 10/10/18 10/28/21 07/18/19 pantoprazole 40 mg tablet,delayed 40 mg PO QAM 10/10/18 10/28/21 07/18/19 release pregabalin 100 mg capsule (Lyrica) 100 mg PO BID 10/10/18 10/28/21 07/18/19 simvastatin 20 mg tablet 20 mg PO HS 10/10/18 10/28/21 07/17/19 metformin 500 mg tablet 1,000 mg PO BID 01/20/19 10/28/21 07/18/19 cyanocobalamin (vitamin B-12) 1,000 mcg PO QAM 07/06/19 10/28/21 07/18/19 1,000 mcg tablet (Vitamin B-12) furosemide 80 mg tablet 80 mg PO BID 10/28/21 10/28/21 Unknown Past Medical History Medical History Anxiety Asthma Depression Diabetes mellitus, type 2 oral meds GERD (gastroesophageal reflux disease) History of seizure As adolescent- was weaned off of anticonvulsants around age 19, no issues since Hx of concussion 05/2018 - r/t trauma, residual neck issues Hx of sleep apnea "No longer as issue" since weight loss + UPPV surgery Hyperlipidemia Hypertension Osteoarthritis Post traumatic stress disorder Seasonal asthma Uses inhalers mostly in springtime Spinal stenosis in cervical region Spinal stenosis of lumbar region Exercise / Class Metabolic Activity II 4-5 Yardwork/Stairs/Walk up hill Past Family History Family History Father Family history of diabetes mellitus Sinusitis Hypertension Heart disease Mother Sinusitis Hypertension Heart disease Stroke Other No family history of bleeding disorder Past Surgical History Surgical History History of carpal tunnel release of both wrists History of difficult intubation C4 corpectomy, C3-5 fusion (10/30/18): Grade view 1 with Glidescope #4, ETT 8.0 at [facility]. No issues noted per post-op anesthesia progress note. History of esophagogastroduodenoscopy (EGD) History of hydrocelectomy History of knee replacement procedure of left knee History of knee replacement procedure of right knee History of lumbar surgery x4 History of meniscectomy of left knee History of meniscectomy of right knee History of repair of anterior cruciate ligament of left knee History of repair of anterior cruciate ligament of right knee History of uvulopalatopharyngoplasty Hx of cervical spine surgery x4, most recent 10/2018 Hx of cholecystectomy Hx of decompression of ulnar nerve Right Hx of lymph node excision Right neck Hx of nasal septoplasty Hx of tonsillectomy Past Anesthesia History No Hx of Anesthesia Complications and No Family Hx of Anesthesia Complications History of PONV No Hx of PONV and No Hx of Motion Sickness Social History Smoking Status: Former smoker tobacco type: cigarettes Do You Dip or Chew Tobacco: Yes (Quit 1991) Smoking End Date: Quit 07/1991 Hx Alcohol Use: Yes Alcohol type: hard liquor alcohol intake frequency: holidays/special occasions only Hx Substance Use: No substance use type: does not use Review of Systems Patient denies chest pain, shortness of breath, dyspnea on exertion, fever, chills, cough, wheezing, palpitations. Physical Exam Vital Signs VITALS BP 115/80 P 68 TEMP 9.0 SP02 98%RA RESP 16 PHYSICAL Full cervical extension range of motion. Full TMJ range of motion. TMD 4 finger breaths Mallampati Score 1 Dentition: upper front crowns Lungs: clear throughout to auscultation Cardiac: regular rate and rhythm, no murmurs noted Spine: normal Carotid arteries: negative bruit Extremities: no edema Lab Results Anesthesia Preop Results Results Anesthesia Widget: WBC 5.98 K/ul (4.8-10.8) 11/07/21 Hgb 13.3 g/dl (14.0-18.0) L 11/07/21 Hct 40.5 % (40.1-51.0) 11/07/21 Plt 242 K/uL (130-400) 11/07/21 Na 137 mmol/L (136-145) 11/07/21 K 4.2 mmol/L (3.5-5.1) 11/07/21 Cl 100 mmol/L (98-107) 11/07/21 CO2 30 mmol/L (21-32) 11/07/21 BUN 17 mg/dl (6-23) 11/07/21 Creat 0.82 mg/dl (0.6-1.4) 11/07/21 Glucose Level 82 mg/dl (70-99(Fasting)) 11/07/21 PT 10.8 Seconds (9.0-12.0) 11/07/21 PTT 26.0 Seconds (21.0-31.0) 11/07/21 INR 1.0 (0.9-1.1) 11/07/21 Urine Color Yellow 11/07/21 Urine Appearance Clear (Clear) 11/07/21 Urine pH 6.5 (4.5-7.5) 11/07/21 Urine Specific [place] 1.007 (1.000-1.030) 11/07/21 Urine Protein Negative (Negative) 11/07/21 Urine Glucose (UA) Negative (Negative) 11/07/21 Urine Ketones Negative (Negative) 11/07/21 Urine Blood Negative (Negative) 11/07/21 Urine Nitrite Negative (Negative) 11/07/21 Urine Bilirubin Negative (Negative) 11/07/21 Urine Urobilinogen Negative (Negative) 11/07/21 Urine Leukocyte Esterase Negative (Negative) 11/07/21 Blood Type A Positive 11/07/21 Antibody Screen NEGATIVE 11/07/21 Testing Electrocardiogram Date: 11/07/21 Findings: + NSR @ (63) Chest X-Ray Date: 11/07/21 FINDINGS: PA and lateral chest radiographs are compared to study dated 07/18/2019. The cardiomediastinal silhouette is unremarkable noting atherosclerotic calcification of the thoracic aorta. Emphysematous change is suspected. There is bibasilar scarring/atelectasis. No airspace consolidation or pleural effusion is identified. There is no pneumothorax. The bony thorax appears intact. Fusion hardware is noted in the lower cervical spine and in the lumbar spine. IMPRESSION: No active disease in the chest. Stress Test Date: 03/05/18 Type: exercise Normal LV size and systolic function with no regional wall motion abnormalities at rest. Rest EF 60%. No LVH. 12.6 METS. 85% MPHR.
[~2021-12-16 06:15] MED LIST changes: +ACETAMINOPHEN 500 MG TAB PO SCH; -CEFAZOLIN 2000MG 2,000 MG/15 ML SYR IV SCH; +CeleBREX 200 MG CAP PO SCH; +GABAPENTIN 600 MG DOSE PO SCH; +LR 60ML/HR IV SCH; +ceFAZolin 2000MG 2,000 MG/15 ML SYR IV SCH
[2021-12-16] MEDS ORDERED: ceFAZolin 330 MG/ML 1 GM VIAL ONE (07:01)
[2021-12-16] MEDS ORDERED: HYDROmorphone INJ 2 MG/ML SYR/VIAL ONE (07:04)
[2021-12-16] MEDS ORDERED: MIDAZOLAM HCL 1 MG/ML 2ML VIAL ONE (07:04)
[2021-12-16] MEDS ORDERED: SUGAMMADEX SODIUM 200 MG/2 ML VIAL IV ONE (07:05)
[2021-12-16] MEDS ORDERED: PROPOFOL IV EMULSION 10 MG/ML 20 ML VIAL IV ONE (07:08)
[2021-12-16] MEDS ORDERED: LIDOCAINE 2% MPF LOCAL 5 ML VIAL INFIL ONE (07:08)
[2021-12-16] MEDS ORDERED: ROCURONIUM BROMIDE 10 MG/ML 5 ML VIAL IV ONE ×2 (07:08→08:24)
[2021-12-16] MEDS ORDERED: DEXAMETHASONE SOD INJ 4 MG/ML VIAL ONE (07:08)
[2021-12-16] MEDS ORDERED: GLYCOPYRROLATE 0.2 MG/ML VIAL ONE (07:08)
[2021-12-16] MEDS ORDERED: ONDANSETRON INJ 2 MG/ML 2 ML VIAL ONE (07:08)
--- NOTE | 2021-12-16 07:35 | History & Physical Bridge Note ---
Date of Service December 16, 2021 History & Physical Bridge Note I have examined the patient, reviewed the History & Physical and in the interval since the performance of the History & Physical I have noted the following changes of clinical significance: no changes noted
--- NOTE | 2021-12-16 07:37 | History & Physical Report ---
Date of Service December 16, 2021 Assessment & Plan (1) Herniation of cervical intervertebral disc with radiculopathy: Plan: C7-T1 anterior cervical discectomy and fusion possible C6-C7 hardware removal History of Present Illness Chief Complaint: Neck and arm pain Primary Care Provider: Ralph Dee MD This is a 7-year-old male who presents with chronic persistent neck and arm pain after failing course of nonoperative care is here for surgical invention. Allergies Allergy/AdvReac Type Severity Reaction Status Date / Time phenytoin [From Dilantin] Allergy Rash Verified 12/16/21 06:32 Home Medications Medication Instructions Recorded Confirmed Type amlodipine 5 mg tablet 5 mg PO HS 10/10/18 12/16/21 History bupropion HCl 150 mg tablet,12 hr 150 mg PO QAM 10/10/18 12/16/21 History sustained-release (Wellbutrin SR) cholecalciferol (vitamin D3) 10 400 unit PO QAM 10/10/18 12/16/21 History mcg (400 unit) chewable tablet (Vitamin D3) fentanyl 25 mcg/hr transdermal 1 patch transdermal Q72H 10/10/18 12/16/21 History patch fluoxetine 40 mg capsule 40 mg PO QAM 10/10/18 12/16/21 History hydrocodone 10 mg-acetaminophen 1 tab PO Q6H PRN Pain 10/10/18 12/16/21 History 325 mg tablet losartan 100 mg tablet 100 mg PO HS 10/10/18 12/16/21 History montelukast 10 mg tablet 10 mg PO QAM 10/10/18 12/16/21 History (Singulair) multivitamin 1 tab PO QAM 10/10/18 12/16/21 History pantoprazole 40 mg tablet,delayed 40 mg PO QAM 10/10/18 12/16/21 History release pregabalin 100 mg capsule (Lyrica) 100 mg PO BID 10/10/18 12/16/21 History simvastatin 20 mg tablet 20 mg PO HS 10/10/18 12/16/21 History metformin 500 mg tablet 1,000 mg PO BID 01/20/19 12/16/21 History cyanocobalamin (vitamin B-12) 1,000 mcg PO QAM 07/06/19 12/16/21 History 1,000 mcg tablet (Vitamin B-12) furosemide 80 mg tablet 80 mg PO BID 10/28/21 12/16/21 History Past Med/Surg History Medical History Anxiety Asthma Depression Diabetes mellitus, type 2 oral meds GERD (gastroesophageal reflux disease) History of seizure As adolescent- was weaned off of anticonvulsants around age 19, no issues since Hx of concussion 05/2018 - r/t trauma, residual neck issues Hx of sleep apnea "No longer as issue" since weight loss + UPPV surgery Hyperlipidemia Hypertension Osteoarthritis Post traumatic stress disorder Seasonal asthma Uses inhalers mostly in springtime Spinal stenosis in cervical region Spinal stenosis of lumbar region Surgical History History of carpal tunnel release of both wrists History of difficult intubation C4 corpectomy, C3-5 fusion (10/30/18): Grade view 1 with Glidescope #4, ETT 8.0 at [facility]. No issues noted per post-op anesthesia progress note. History of esophagogastroduodenoscopy (EGD) History of hydrocelectomy History of knee replacement procedure of left knee History of knee replacement procedure of right knee History of lumbar surgery x4 History of meniscectomy of left knee History of meniscectomy of right knee History of repair of anterior cruciate ligament of left knee History of repair of anterior cruciate ligament of right knee History of uvulopalatopharyngoplasty Hx of cervical spine surgery x4, most recent 10/2018 Hx of cholecystectomy Hx of decompression of ulnar nerve Right Hx of lymph node excision Right neck Hx of nasal septoplasty Hx of tonsillectomy Family History Father Family history of diabetes mellitus Sinusitis Hypertension Heart disease Mother Sinusitis Hypertension Heart disease Stroke Other No family history of bleeding disorder Social History Smoking Status: Former smoker Tobacco Type: Cigarettes Age Started Using Tobacco: 11; Age Quit Using Tobacco: 30; packs per day: 2; Years Smoked: 20; Smoking End Date: Quit 07/1991; Second Hand Exposure: No; Do You Dip or Chew Tobacco: Yes (Quit 1991); Tobacco Cessation Education Requested by Patient: No Hx Alcohol Use: Yes Alcohol type: hard liquor Alcohol Intake Frequency Comment: 3-4 drinks/month Hx Substance Use: No Preferred Language: Bengali Communication Ability: Effective Oem Sales Manager Required: No Beliefs That Will Affect Care: None Current Living Situation: Spouse and Family Current Living Situation Comment: Lives with , mother in law, brother in law current occupational status: employed current occupation: information technology Other Information That Helps Us Care for You: No Feels Safe at Home: Yes Safety Concerns: Feels Safe At This Time Assistive Devices: Glasses Physical Exam Physical Exam: Patient is alert and oriented Heart regular rhythm Lungs clear Results & Data Results & Data ([facility]) Vital Signs (Past 12 Hours) Vital Signs Temp Pulse Resp BP Pulse Ox O2 Del Method 12/16/21 06:39 37.0 C 62 20 121/70 95 Room Air
[2021-12-16] MEDS ORDERED: ePHEDrine sulfate 50 MG/ML AMP IV PRN (07:43)
[2021-12-16] MEDS ORDERED: ATROPINE SULFATE 0.1 MG/ML 10ML SYR IV PRN (07:43)
[2021-12-16] MEDS ORDERED: ONDANSETRON INJ 2 MG/ML 2 ML VIAL IV PRN ×2 (07:43→11:28)
[2021-12-16] MEDS ORDERED: PHENYLEPHRINE 100MCG/ML 5ML SYR ONE (08:02)
[2021-12-16] MEDS ORDERED: ePHEDrine sulfate 50 MG/ML SYR ONE (08:03)
[2021-12-16] MEDS ORDERED: FLOSEAL HEMOSTATIC MATRIX 10ML TOP ONE (08:22)
--- NOTE | 2021-12-16 09:19 | Operative Report ---
Post Operative Report Pre & Post Diagnosis Operation Date: 11/21/21 10:05 <No data on this case meets the specified criteria> Operation Date: 12/16/21 07:45 Pre-Op Diagnosis: Cervical disc herniation with radiculopathy Post-Op Diagnosis: Same I identified the patient and participated in the time-out.: Yes Procedure Operation Date: 11/21/21 10:05 <No data on this case meets the specified criteria> Operation Date: 12/16/21 07:45 Actual Procedures #1 removal of anterior cervical instrumentation C6-C7. #2 exploration of fusion C6-C7. #3 anterior cervical discectomy with bilateral foraminotomies C7-T1. #4 anterior cervical arthrodesis C7-T1. #5 placement of 9 mm Spira cage filled with I factor at C7-T1. #6 application of kirby plate and screws across the C7 and T1. Surgeon Mikel Gregory DO [employer] None Estimated Blood Loss 20 Findings Consistent with Post-Op Diagnosis Specimens None Indications This is a 7-year-old male known to me the presents with chronic persistent cervical radiculopathy. Failing course of nonoperative care is here for surgical intervention. Description of Procedure Patient met with identified informed consent obtained. Patient was then taken to the operative suite underwent a patient placed in supine position Kadeem with head Rosario head lower. All bony prominences well-padded eyes inspected to ensure no external pressure placed upon the. This point the anterior cervica l spine was prepped and draped normal sterile fashion. The assistance of fluoroscopy identified the C7 cervical level. Transverse incision was then placed along the right anterior aspect of the cervical spine overlying this region. Blunt dissection with assistance of bipolar electrocautery was then performed down to and exposing the anterior cervical spine from see 6 to T1. Self-retaining retractors placed. Then for removed the plate from C6-C7. Explored the fusion mass noting it to be mature and intact. Then performed a complete discectomy of the C7-T1 out to the uncovertebral joints bilaterally. [place] distraction pins were utilized to assist in visualization. I removed all posterior annular fibers longitudinal ligament bilateral foraminotomies performed. Endplates burred to subcortically bone and a 9 mm spiral cage with I factor tapped in position. Distracting apparatus was removed and a 5 complete and screws applied with the assistance of fluoroscopy. The incision was then copiously irrigated explored to ensure no damage to surrounding structures remaining bleeding. 10 round AUGUSTUS drain inserted. The incision was then closed with 2 Vicryl in the fascia and 4 Monocryl for fascial closure. Steri-Strip sterile dressings placed. Patient waken taken PACU stable condition. Please note spinal cord monitoring was utilized at the procedure no changes noted. I attest to the content of the Intraoperative Record and any orders documented therein. Any exceptions are noted below.
--- NOTE | 2021-12-16 09:32 | Fluoroscopy Report ---
FL cervical 2-3V CLINICAL HISTORY: C7-T1 ACDF, POSSIBLE C6-7 HARDWARE REMOVAL COMPARISON STUDY: None. FLUOROSCOPY TIME: 18 seconds. FINDINGS: 3 fluoroscopic spot images of the cervical spine demonstrate anterior cervical discectomy a nd fusion at C7-T1. The hardware appears intact. Partially visualized hardware within the upper cervi julio spine is noted. IMPRESSION: Fluoroscopic assistance provided for C7-T1 ACDF. ACT 112: Negative or not required by law. Electronically signed by: Catalino Gomez M.D. 12/16/2021 9:31 AM
[2021-12-16] MEDS: fentaNYL citrate 100 MCG/2 ML VIAL IV PRN ×4 (09:33→09:48)
[2021-12-16] MEDS: HYDROmorphone INJ 2 MG/ML SYR/VIAL IV PRN ×4 (10:21→10:43)
[2021-12-16] MEDS ORDERED: LORazepam 0.5 MG in SYRINGE 0.25 ML IV PRN (11:28)
[2021-12-16] MEDS ORDERED: HYDROmorphone INJ 1 MG/ML SYRINGE IV PRN (11:28)
[2021-12-16] MEDS ORDERED: ALUMINUM/MAGNESIUM SUSP 30 ML UDC PO PRN (11:28)
[2021-12-16] MEDS ORDERED: LORazepam 0.5 MG TAB PO PRN (11:28)
[2021-12-16] MEDS ORDERED: oxyCODONE HCL IR 5 MG TAB (IMMEDIATE RELEASE) PO PRN (11:28)
[2021-12-16] MEDS ORDERED: NALOXONE HCL 0.4 MG/1 ML VIAL/CARP IV PRN (11:28)
[2021-12-16] MEDS ORDERED: traMADol HCL 50 MG TABLET PO PRN (11:28)
[2021-12-16] MEDS ORDERED: METOCLOPRAMIDE HCL INJ 5 MG/ML 2 ML VIAL IV PRN (11:28)
[2021-12-16] MEDS ORDERED: ACETAMINOPHEN 500 MG TAB PO PRN (11:28)
[2021-12-16] MEDS ORDERED: diphenhydrAMINE Capsule 25 MG CAP PO PRN (11:28)
[2021-12-16] MEDS ORDERED: PROMETHAZINE HCL 12.5 MG in SODIUM CHLORIDE 0.9% 50 ML IV PRN (11:28)
[2021-12-16] MEDS ORDERED: dexAMETHasone 8 MG in SYRINGE 0 ML IV PRN (11:28)
[2021-12-16] MEDS ORDERED: bisacodyL 10 MG SUPP PR PRN (11:28)
[2021-12-16] MEDS ORDERED: ONDANSETRON 4 MG OD TAB PO PRN (11:28)
[2021-12-16] MEDS ORDERED: RACEPINEPHRINE 2.25% NEBU SOLN 0.5 ML VIAL INH PRN (11:28)
[2021-12-16] MEDS ORDERED: hydrOXYzine HCl 25 MG TAB PO PRN (11:28)
[2021-12-16] MEDS ORDERED: PHARMACY GLYCEMIC MGMT CONSULT PRN (11:28)
[2021-12-16] MEDS ORDERED: SOD PHOSPHATE/SOD BIPHOSPHATE ENEMA 132 ML BTL PR PRN (11:28)
[2021-12-16] MEDS ORDERED: ACETAMINOPHEN 1,000 MG/100 ML VIAL IV PRN (11:28)
[2021-12-16] MEDS ORDERED: MAGNESIUM HYDROXIDE SUSP 30 ML UDC PO PRN (11:28)
[2021-12-16] MEDS ORDERED: FAMOTIDINE 20 MG TAB PO PRN (11:28)
[2021-12-16] MEDS: HYDROmorphone INJ 0.5 MG/0.5 ML SYR IV PRN ×2 (12:53→19:25)
[2021-12-16] MEDS ORDERED: fentaNYL 25 MCG/HR TDSY TD SCH (13:30)
--- NOTE | 2021-12-16 13:32 | Pharmacy Report ---
Pharmacy Glycemic Short Note 2 - Date of Service December 16, 2021 - Glycemic Short BSG Results (Last 24 hours): 12/16/21 12/16/21 06:33 09:27 POC Glucose 113 H 101 H OUTPATIENT ANTIDIABETIC REGIMEN: * Metformin 1000 mg BID * A1c pending ASSESSMENT: * Patient admitted following spinal surgery, patient received dexamethasone, scheduled daily * Last a1c in system from 2019 but was 6.1%, BSGs this AM prior to surgery within goal range * Will provided weight based novolog scale (between weight based stress of 2/3). And loose lantus scale based on this. Adjust as needed pending BSG trend. * Patient did receive uncovered meal tray prior to consult. PLAN FOR INPATIENT GLYCEMIC CONTROL: * Hold outpatient oral diabetes medications * Basal insulin * Lantus // * Bolus insulin * NovoLog per scale ACHS or Q6hrs while NPO * Goal Range: Low 110 mg/dL - High 140 mg/dL * Correction Factor: 30 mg/dL/unit * Nutritional / Prandial insulin per carb ratio of 1 unit per 12 grams CHO consumed
--- NOTE | 2021-12-16 13:46 | Anesthesiology Progress Note ---
Date of Service December 16, 2021 Anesthesia Post Procedure Vital Signs Vital Signs: Temp Pulse Pulse Resp BP Pulse Ox O2 Del Method 12/16/21 12:50 76 19 109/64 98 Nasal Cannula 12/16/21 12:20 65 14 102/65 98 Nasal Cannula 12/16/21 11:50 98.1 F 60 12 110/70 97 Nasal Cannula 12/16/21 11:20 62 12 114/63 97 Nasal Cannula 12/16/21 11:05 59 L 12 113/64 97 Nasal Cannula 12/16/21 10:50 65 12 109/63 96 Nasal Cannula 12/16/21 10:40 63 12 111/68 95 Nasal Cannula 12/16/21 10:30 71 15 105/67 96 Room Air 12/16/21 10:20 66 16 111/69 97 Room Air 12/16/21 10:10 98.2 F 68 16 110/72 95 Room Air 12/16/21 10:00 74 20 115/74 96 Room Air 12/16/21 09:50 59 L 12 107/69 94 Room Air 12/16/21 09:40 71 14 121/75 100 Oxymask 12/16/21 09:30 69 12 115/70 100 Oxymask 12/16/21 09:23 97.0 F L 59 L 16 106/66 100 Oxymask 12/16/21 06:39 98.6 F 62 20 121/70 95 Room Air O2 Flow Rate 12/16/21 12:50 2 12/16/21 12:20 2 12/16/21 11:50 2 12/16/21 11:20 2 12/16/21 11:05 2 12/16/21 10:50 2 12/16/21 10:40 2 12/16/21 10:30 12/16/21 10:20 12/16/21 10:10 12/16/21 10:00 12/16/21 09:50 12/16/21 09:40 4 12/16/21 09:30 6 12/16/21 09:23 6 12/16/21 06:39 Pain Intensity Medial Neck: Pain Intensity: 5 Transfer of Care Handoff Completed per policy Notes Mental Status: alert / awake / arousable and participated in evaluation Patient Amnestic to Procedure: Yes Nausea / Vomiting: adequately controlled Pain: adequately controlled Airway Patency, RR, SpO2: stable & adequate BP & HR: stable & adequate Hydration State: stable & adequate Anesthetic Complications: no major complications apparent and Pt Satisfied with anesthetic care
[2021-12-16] MEDS: LACTATED RINGER'S 1,000 ML IV SCH (15:07)
[2021-12-16] MEDS: INSULIN ASPART PER UNIT SC SCH ×3 (15:08→21:56)
[2021-12-16] MEDS: CHECK fentaNYL PATCH PLACEMENT SCH (15:41)
[2021-12-16] MEDS: ceFAZolin 2000MG 2,000 MG/15 ML SYR IV SCH ×2 (15:50→23:57)
--- NOTE | 2021-12-16 16:27 | Hospitalist Consultation ---
Date of Consultation December 16, 2021 Assessment & Plan (1) S/P cervical spinal fusion: -Patient is post-op day #0 from anterior cervical discectomy and fusion at C7-T1 -No reported complications, EBL of approximately 20 cc, patient is currently stable and without acute distress -Management of surgical site, abx, pain management, and DVT PPX per primary team -Adding on AM CBC with diff and bmp (2) Asthma: -Currently stable on 2L NC post-op, no respiratory distress or SOB, wean to RA as able -Will order prn albuterol nebulizer for wheezing (3) Diabetes: -Pharmacy glycemic control consult placed and orders already in, follow their recommendations -Resume CLINICAL TECHNICIAN metfromin on discharge (4) Hypertension: -Hemodynamically stable -Can restart CLINICAL TECHNICIAN amlodipine tonight if needed -Holding CLINICAL TECHNICIAN lasix until tomorrow when we can review labs, does not examine volume overloaded (5) Hyperlipidemia: -Continue CLINICAL TECHNICIAN statin (6) GERD (gastroesophageal reflux disease): -Continue CLINICAL TECHNICIAN pantoprazole and famotidine ordered by primary team Plan The plan was was discussed with Dr. Whittington at the time of the consult Supervising Physician Co-Signing Physician Notes Patient seen and examined at bedside. During face to face encounter obtained a history and physical examination. I reviewed above note and agree with it. Plan of care discussed with patient and APC Peno. will order glycemic management consult for diabetes. reorder inhaler prn for asthma History of Present Illness Reason for Consultation: Medical management Requesting Physician: Mikel Gregory DO Attending Physician: Dr. Nakul Whittington History of Present Illness Ayush is a 61 year old male with a PMH significant for DM, HTN, Dyslipidemia, GERD, asthma, previous covid 19 infection in October of this year, and cervical spinal stenosis who presented to the OR today for elective anterior cervical discectomy and fusion at C7-T1. Per the post-op report, there were no reported intra-op complications and the EBL was approximately 20 cc. At the time of the exam the patient was resting comfortably in bed in no acute distress, he is currently in C-collar post procedure. He states that he is doing well post-procedure and currently has about 4/10 pain at the site of the procedure. He notes that his neck and radiculopathy are already feeling improved compared to before the procedure. He has no other complaints at this time and denies current fever, chills, headache, changes in vision, hearing, taste, and smell, chest pain, SOB, abd pain, nausea, vomiting, diarrhea, dysuria, hematuria and new neurologic symptoms since the procedure. He notes he is only on metform in for his DM and is not on O2 or Cpap at home. Allergies Allergy/AdvReac Type Severity Reaction Status Date / Time phenytoin [From Dilantin] Allergy Rash Verified 12/16/21 06:32 Home Medications Medication Instructions Recorded Confirmed Type amlodipine 5 mg tablet 5 mg PO HS 10/10/18 12/16/21 History bupropion HCl 150 mg tablet,12 hr 150 mg PO QAM 10/10/18 12/16/21 History sustained-release (Wellbutrin SR) cholecalciferol (vitamin D3) 10 400 unit PO QAM 10/10/18 12/16/21 History mcg (400 unit) chewable tablet (Vitamin D3) fentanyl 25 mcg/hr transdermal 1 patch transdermal Q72H 10/10/18 12/16/21 History patch fluoxetine 40 mg capsule 40 mg PO QAM 10/10/18 12/16/21 History losartan 100 mg tablet 100 mg PO HS 10/10/18 12/16/21 History montelukast 10 mg tablet 10 mg PO QAM 10/10/18 12/16/21 History (Singulair) multivitamin 1 tab PO QAM 10/10/18 12/16/21 History pantoprazole 40 mg tablet,delayed 40 mg PO QAM 10/10/18 12/16/21 History release pregabalin 100 mg capsule (Lyrica) 100 mg PO BID 10/10/18 12/16/21 History simvastatin 20 mg tablet 20 mg PO HS 10/10/18 12/16/21 History metformin 500 mg tablet 1,000 mg PO BID 01/20/19 12/16/21 History cyanocobalamin (vitamin B-12) 1,000 mcg PO QAM 07/06/19 12/16/21 History 1,000 mcg tablet (Vitamin B-12) furosemide 80 mg tablet 80 mg PO BID 10/28/21 12/16/21 History oxycodone 5 mg tablet 5 mg PO Q6H PRN pain, severe #30 12/16/21 Rx tabs Patient History Medical History Anxiety Asthma Depression Diabetes mellitus, type 2 oral meds GERD (gastroesophageal reflux disease) History of seizure As adolescent- was weaned off of anticonvulsants around age 19, no issues since Hx of concussion 05/2018 - r/t trauma, residual neck issues Hx of sleep apnea "No longer as issue" since weight loss + UPPV surgery Hyperlipidemia Hypertension Osteoarthritis Post traumatic stress disorder Seasonal asthma Uses inhalers mostly in springtime Spinal stenosis in cervical region Spinal stenosis of lumbar region Surgical History History of carpal tunnel release of both wrists History of difficult intubation C4 corpectomy, C3-5 fusion (10/30/18): Grade view 1 with Glidescope #4, ETT 8.0 at [facility]. No issues noted per post-op anesthesia progress note. History of esophagogastroduodenoscopy (EGD) History of hydrocelectomy History of knee replacement procedure of left knee History of knee replacement procedure of right knee History of lumbar surgery x4 History of meniscectomy of left knee History of meniscectomy of right knee History of repair of anterior cruciate ligament of left knee History of repair of anterior cruciate ligament of right knee History of uvulopalatopharyngoplasty Hx of cervical spine surgery x4, most recent 10/2018 Hx of cholecystectomy Hx of decompression of ulnar nerve Right Hx of lymph node excision Right neck Hx of nasal septoplasty Hx of tonsillectomy Family History Father Family history of diabetes mellitus Sinusitis Hypertension Heart disease Mother Sinusitis Hypertension Heart disease Stroke Other No family history of bleeding disorder Social History Smoking Status: Former smoker Tobacco Type: Cigarettes Age Started Using Tobacco: 11; Age Quit Using Tobacco: 30; packs per day: 2; Years Smoked: 19; Smoking End Date: Quit 07/1991; Second Hand Exposure: No; Do You Dip or Chew Tobacco: Yes (Quit 1991); Tobacco Cessation Education Requested by Patient: No Hx Alcohol Use: Yes Alcohol type: hard liquor Alcohol Intake Frequency Comment: 3-4 drinks/month Hx Substance Use: No Preferred Language: Pashto Communication Ability: Effective Hogshead Inspector Required: No Beliefs That Will Affect Care: None marital status: Current Living Situation: Spouse and Family Current Living Situation Comment: Lives with , mother in law, brother in law current occupational status: employed current occupation: information technology Other Information That Helps Us Care for You: No Feels Safe at Home: Yes Safety Concerns: Feels Safe At This Time Assistive Devices: None Review of Systems Review of Systems: Denies current fever, chills, headache, changes in vision, hearing, taste, and smell, chest pain, SOB, cough, abdominal pain, nausea, vomiting, diarrhea, hematemesis, melena, dysuria, hematuria, and recent falls. All systems have been reviewed and are otherwise negative. Physical Exam Physical Exam: Physical Exam: General: In no acute distress, stated age, well-nourished, good hygiene HEENT: Patient currently with C-collar in place without issue, Normocephalic, atraumatic, no scleral icterus, pupils around round, symmetrical, and reactive to light, moist mucus membranes, trachea midline, no thyromegaly, drain from the surgical site is currently draining a small amount of blood without signs of infection Chest/Pulm: No respiratory distress, symmetrical chest expansion, clear breath sounds throughout Cardiac: RRR, no murmurs noted Abdomen: Negative for ascites and bruising, normoactive bowel sounds, soft, non-tender to palpation throughout Musculoskeletal: C-collar in place, patient with full ROM of the BL upper and lower extremities Extremities: Radial, dorsalis pedis, and posterior tibial pulses are intact and symmetrical, no edema noted in the BL LE's Skin: Warm, dry, no rashes , lesions, or scars noted Neuro: Alert and oriented to person, place, month, year, and president, no focal defects, CN II-XII tested and intact, finger to nose test negative, no tremors noted Psych: No acute distress, calm and cooperative during the exam Results & Data Results & Data ([facility]) Vital Signs (Past 12 Hours) Vital Signs Temp Pulse Pulse Resp BP Pulse Ox O2 Del Method 12/16/21 15:55 36.4 C L 73 17 124/68 97 Nasal Cannula 12/16/21 15:23 36.5 C 73 18 116/70 96 Nasal Cannula 12/16/21 14:56 36.9 C 78 18 121/71 2 L Nasal Cannula 12/16/21 13:50 81 16 113/62 98 Nasal Cannula 12/16/21 12:50 76 19 109/64 98 Nasal Cannula 12/16/21 12:20 65 14 102/65 98 Nasal Cannula 12/16/21 11:50 36.7 C 60 12 110/70 97 Nasal Cannula 12/16/21 11:20 62 12 114/63 97 Nasal Cannula 12/16/21 11:05 59 L 12 113/64 97 Nasal Cannula 12/16/21 10:50 65 12 109/63 96 Nasal Cannula 12/16/21 10:40 63 12 111/68 95 Nasal Cannula 12/16/21 10:30 71 15 105/67 96 Room Air 12/16/21 10:20 66 16 111/69 97 Room Air 12/16/21 10:10 36.8 C 68 16 110/72 95 Room Air 12/16/21 10:00 74 20 115/74 96 Room Air 12/16/21 09:50 59 L 12 107/69 94 Room Air 12/16/21 09:40 71 14 121/75 100 Oxymask 12/16/21 09:30 69 12 115/70 100 Oxymask 12/16/21 09:23 36.1 C L 59 L 16 106/66 100 Oxymask 12/16/21 06:39 37.0 C 62 20 121/70 95 Room Air O2 Flow Rate 12/16/21 15:55 2 12/16/21 15:23 2 12/16/21 14:56 12/16/21 13:50 2 12/16/21 12:50 2 12/16/21 12:20 2 12/16/21 11:50 2 12/16/21 11:20 2 12/16/21 11:05 2 12/16/21 10:50 2 12/16/21 10:40 2 12/16/21 10:30 12/16/21 10:20 12/16/21 10:10 12/16/21 10:00 12/16/21 09:50 12/16/21 09:40 4 12/16/21 09:30 6 12/16/21 09:23 6 12/16/21 06:39 Laboratory Results Abnormal lab results 12/16/21 12/16/21 Range/Units 06:33 09:27 POC Glucose 113 H 101 H (70-99) mg/dl Diagnostic Findings Cervical Spine X-Ray 12/16/21 00:00 FL cervical 2-3V CLINICAL HISTORY: C7-T1 ACDF, POSSIBLE C6-7 HARDWARE REMOVAL COMPARISON STUDY: None. FLUOROSCOPY TIME: 18 seconds. FINDINGS: 3 fluoroscopic spot images of the cervical spine demonstrate anterior cervical discectomy and fusion at C7-T1. The hardware appears intact. Partially visualized hardware within the upper cervical spine is noted. IMPRESSION: Fluoroscopic assistance provided for C7-T1 ACDF. ACT 112: Negative or not required by law. Electronically signed by: Catalino Gomez M.D. 12/16/2021 9:31 AM ECG Additional Comments: No ECG available at the time of the consult PG Care Time/CCT Total # of Minutes Spent Total Time Spent with Patient: Total time spent is greater than 50% in coordination of care (as documented) at patient's floor/unit and/or counseling patient: [place] [address] Inpt Consult Level 5 Patient Type Established Medical Decision Making Moderate Complexity Diagnoses S/P cervical spinal fusion Z98.1 Asthma J45.909 Diabetes E11.9 Hypertension I10 Hyperlipidemia E78.5 GERD (gastroesophageal reflux disease) K21.9
[2021-12-16] MEDS ORDERED: INSULIN GLARGINE SOLOSTAR 100 UNITS/ML 3 ML PEN SC ONE (16:30)
[2021-12-16] MEDS ORDERED: LANTUS PER UNIT CHARGE SQ ONE (16:30)
[2021-12-16] MEDS ORDERED: ALBUTEROL 0.5% NEB SOLN 2.5 MG/0.5 ML VIAL NEB PRN (16:51)
[2021-12-16] MEDS ORDERED: amLODIPine BESYLATE 5 MG TAB PO SCH (21:00)
[2021-12-16] MEDS ORDERED: FUROSEMIDE 80 MG TAB PO SCH (21:00)
[2021-12-16] MEDS ORDERED: SIMVASTATIN 20 MG TAB PO SCH (21:00)
[2021-12-16] MEDS ORDERED: LOSARTAN POTASSIUM 50 MG TAB PO SCH (21:00)
[2021-12-16] MEDS ORDERED: DOCUSATE SODIUM/SENNA 50/8.6MG TAB PO SCH (21:00)
[2021-12-16] MEDS: PREGABALIN 100 MG CAP PO SCH (21:07)
[2021-12-17] MEDS: CHECK fentaNYL PATCH PLACEMENT SCH ×2 (00:03→08:15)
[2021-12-17] MEDS: LACTATED RINGER'S 1,000 ML IV SCH (01:05)
[2021-12-17] MEDS ORDERED: INSULIN ASPART PER UNIT SC SCH (02:00)
[2021-12-17] MEDS: POLYETHYLENE (MIRALAX) 17 GM PACK PO SCH ×2 (06:22→12:22)
[2021-12-17 06:36] LABS: Hematocrit (blood only) 36.1 % (40.1-51.0); Hemoglobin 12.5 g/dl (14.0-18.0); Mean Corpuscular Hemoglobin 30.5 pg (25.0-34.0); Mean Corpuscular Hgb Conc 34.6 g/dL (32.0-36.0); Mean Platelet Volume 10.8 fL (9.4-12.4); Platelet Count 192 K/uL (130-400); RDW Coefficient of Variation 13.2 % (11.5-14.5); White Blood Count 8.78 K/ul (4.8-10.8)
[2021-12-17 06:37] LABS: BUN Creatinine Ratio 23.4 (10-20); Creatinine Clr Calc Pharmacy 138.7 ml/min; Est GFR (African American) 123.3 ml/min; Est GFR (Non-African American) 106.4 ml/min
[2021-12-17 07:04] LABS: Basophils # (auto) 0.05 K/uL (0-0.2); Basophils % (auto) 0.6 %; Eosinophils # (auto) 0.21 K/uL (0-0.50); Eosinophils % (auto) 2.4 %; Immature Granulocytes # (auto) 0.02 K/uL (0.00-0.02); Immature Granulocytes % (auto) 0.2 %; Lymphocytes # (auto) 1.11 K/uL (1.2-3.4); Lymphocytes % (auto) 12.6 %; Monocytes % (auto) 11.4 %; Neutrophils # (auto) 6.39 K/uL (1.4-6.5); Neutrophils % (auto) 72.8 %
[2021-12-17] MEDS: PREGABALIN 100 MG CAP PO SCH (08:15)
--- NOTE | 2021-12-17 08:16 | Discharge Summary ---
Date of Service December 17, 2021 Admission HPI Per Admitting Provider This is a 7-year-old male who presents with chronic persistent neck and arm pain after failing course of nonoperative care is here for surgical invention. Principal Diagnosis Cervical disc herniation with radiculopathy Discharge Data Allergies Allergy/AdvReac Type Severity Reaction Status Date / Time phenytoin [From Dilantin] Allergy Rash Verified 12/16/21 06:32 Consultations 12/16/21 11:28 Consult Hospitalist Routine Procedures Performed Operation Date: 11/21/21 10:05 <No data on this case meets the specified criteria> Operation Date: 12/16/21 07:45 Actual Procedures p C7-T1 Anterior Cervical Discectomy Fusion, Spinal Cord Monitoring(Not Applicable) - Mikel Gregory DO s C6-C7 Hardware Removal, (Not Applicable) - Mikel Gregory DO Ordered Studies 12/16/21 [place] cervical 2-3V Routine Hospital Course (1) Herniation of cervical intervertebral disc with radiculopathy: Patient underwent anterior cervical discectomy and fusion tolerated this well was taken to the orthopedic floor postoperative. Postop day 1 is up and ambulating swallowing well arm symptoms markedly improved. Excellent strength testing. AUGUSTUS drain decreasing appropriately. Pain well controlled. Separately discharged home. Discharge orders instructions from the chart for further review. Total Time Total Time Spent Total Time Spent (In Minutes): 20 minutes Discharge Plan Discharge Items Patient Disposition: Home - Self-Care Reason For Visit: Spinal Stenosis, Cervical Region Discharge Diagnosis: Several discrimination with radiculopathy Activity: As commented below Non-emergency contact: Primary Care Provider Call non-emergency contact if: you have any medication questions Follow-up/Referrals: Ralph Dee MD [Primary Care Provider] - Diet: Regular Addtl Attending Provider Instructions: ACTIVITY RECOMMENDATIONS: SELF CARE INSTRUCTIONS AFTER CERVICAL FUSIONS 1. No smoking. Smoking drastically decreases the chance of a solid fusion. 2. No bending, lifting more than 5 pounds, or twisting (roll like a log when t urning in bed). 3. You may shower 3 days after surgery. Thoroughly dry wound. Do not soak in the tub. 4. Cervical collar: Must be worn at all times including sleeping. You may remove the brace only to bath, eat and if you are sitting in a recliner. 5. Please walk as much as you can for exercise. Gradually increase the distance that you walk as your endurance increases. SPECIAL CARE INSTRUCTIONS: VERY IMPORTANT TO READ AND REVIEW A. Do not take any anti-inflammatory medications (i.e. Indocin, Advil, Aspirin, Naprosyn, Aleve, Motrin, etc.) as these may inhibit the chance of a solid fusion. Tylenol is okay to take. B. Your surgical incision has been closed with a cosmetic suture under the skin that will dissolve in about 6 weeks. In 14 days, you can use a pair of clean scissors and cut the suture that is left outside of the skin at the ends of your incision. C. Complications are uncommon, but please contact us if you have any signs or symptoms of: 1. wound infection (fever higher than 102.5 degrees F, redness, separation of wound, drainage, or increasing pain from the incision) 2. blood clots in legs (pain, swelling, redness and warmth in legs) 3. urinary tract infection (fever higher than 102.5 degrees, burning upon urination or increased frequency of urination) 4. nerve problems (inability to walk on your toes or heels, numbness, loss of bowel or bladder control) 5. any other symptoms that concern you. D. Please call the office at if you have any concerns or questions about your operation or recovery. MANAGING PAIN AFTER SPINAL SURGERY 1. Narcotic medication is intended for short-term use and will be provided for surgical pain. Surgical pain usually lasts for a period of 4-6 weeks. Narcotic medication includes Percocet, Vicodin, Darvocet, Tylenol #3 or Lortab. 2. Longer-term pain is more appropriately treated with non-narcotic medication such as Tylenol ES. 3. Muscle spasm is not appropriately treated with narcotics. Muscle relaxers such as Soma, Flexeril or Skelaxin can be used along with Tylenol ES. 4. Remember that we all live with some "aches and pains". This is not unusual or uncommon after an injury or as we get older. 5. We will provide appropriate medication within the normal guidelines of their prescribed use. We will also be very cautious and aware of potential abuse and extended duration of patients' medication needs. 6. Please allow 2-3 days to process refills. Prescriptions will not be mailed but must be picked up at the office. FOLLOW UP VISIT: Keep your scheduled follow-up appointment. Any questions, please call the office at . Pending Studies at Discharge: No Stand-Alone Forms: My [facility], Smoking Cessation Medications and DC Order Prescriptions: New oxycodone 5 mg tablet 5 mg PO Q6H PRN (Reason: pain, severe) Qty: 30 0RF Continued cyanocobalamin (vitamin B-12) [Vitamin B-12] 1,000 mcg Tablet 1,000 mcg PO QAM Rx Instructions: PT UNSURE ON STRENGTH cholecalciferol (vitamin D3) [Vitamin D3] 400 unit Tablet,Chewable 400 unit PO QAM Rx Instructions: PT UNSURE OF STRENGTH bupropion HCl [Wellbutrin SR] 150 mg Tablet Sustained-Release 12 Hr 150 mg PO QAM amlodipine 5 mg Tablet 5 mg PO HS fluoxetine 40 mg Capsule 40 mg PO QAM fentanyl 25 mcg/hr Patch 72 Hour 1 patch TRANSDERMAL Q72H multivitamin Tablet 1 tab PO QAM montelukast [Singulair] 10 mg Tablet 10 mg PO QAM losartan 100 mg Tablet 100 mg PO HS pantoprazole 40 mg Tablet,Delayed Release (Dr/Ec) 40 mg PO QAM simvastatin 20 mg Tablet 20 mg PO HS pregabalin [Lyrica] 100 mg Capsule 100 mg PO BID metformin 500 mg tablet 1,000 mg PO BID furosemide 80 mg Tablet 80 mg PO BID Discontinued hydrocodone-acetaminophen 10-325 mg Tablet 1 tab PO Q6H PRN (Reason: Pain) Discharge Orders: Discharge Order (Routine); Ordered 12/17/21 Ordered By: Mikel Gregory Admission Data Admit Date/Time: 12/16/21 09:23 Attending Provider: Mikel Gregory Admit Provider: Mikel Gregory Primary Care Provider: Ralph Dee Other Providers: Hector Tobar ; Raina Srinivasan
[2021-12-17] MEDS: INSULIN ASPART PER UNIT SC SCH ×2 (08:47→12:52)
[2021-12-17] MEDS ORDERED: buPROPion SR 150 MG TABCR PO SCH (09:00)
[2021-12-17] MEDS ORDERED: dexAMETHasone 6 MG in SYRINGE 0 ML IV SCH (09:00)
[2021-12-17] MEDS ORDERED: FUROSEMIDE 80 MG TAB PO SCH (09:00)
[2021-12-17] MEDS ORDERED: FLUoxetine HCL 20 MG CAP PO SCH (09:00)
[2021-12-17] MEDS ORDERED: MONTELUKAST SODIUM 10 MG TABLET PO SCH (09:00)
[2021-12-17] MEDS ORDERED: MULTIVITAMIN TAB PO SCH (09:00)
[2021-12-17] MEDS ORDERED: PANTOprazole 40 MG TAB PO SCH (09:00)
[2021-12-17 09:37] LABS: Estimated Average Glucose 120 mg/dl; Hemoglobin A1C 5.8 % (4.5-5.6)
--- NOTE | 2021-12-17 12:57 | Communication Note ---
Date of Service: December 17, 2021 Chart reviewed, labs and vital stable. Pt seen just prior to discharge, doing well, no complaints. Stable from medical standpoint for discharge
[2021-12-18] MEDS ORDERED: fentaNYL 25 MCG/HR TDSY TD SCH (10:00)
== END 2021-12-17 13:09 | disposition home or self-care (01) ==
LOC: ASU 06:15 → INTOOBSV 09:23 → PACUINP 09:23 → 3E 14:56